=== PATIENT | female | born 1960 | race Caucasian/White ===

== ENCOUNTER 2017-09-22 16:46 | Inpatient (IN) ==
--- NOTE | 2017-09-22 17:16 | Emergency Department Note ---
Disposition Clinical Impression: Elevated d-dimer, Confusion, Ataxia of both arms Dyspnea Qualifiers: Dyspnea type: unspecified Qualified Code(s): R06.00 - Dyspnea, unspecified Chest pain Qualifiers: Chest pain type: unspecified Qualified Code(s): R07.9 - Chest pain, unspecified Altered mental status Qualifiers: Altered mental status type: unspecified Qualified Code(s): R41.82 - Altered mental status, unspecified Disposition: Still a Patient Condition: Good Referrals: Efrem Mcbride MD [Primary Care Provider] - Forms: ED Satisfaction Letter Time of Disposition: 18:29 SOB HPI - General Chief Complaint: ED Shortness of Breath/Dyspnea Stated Complaint: DEBRA, high HR Time Seen by Provider: 09/22/17 16:50 Source: patient, family Mode of arrival: ambulatory Limitations: no limitations Nursing Notes Reviewed: Yes Vital Signs Reviewed: Yes - History of Present Illness Patient is a 57-year-old female with past medical history of COPD, wears 2 L nasal cannula chronically at home. She presents today due to multiple complaints. She states that over the past week, she has had short-term memory loss. Today, several hours prior to arrival, she was looking at her 's cell phone and felt very confused, did not know how to use it. She denies any specific numbness, tingling, weakness. However, she does note that she has been having tremors gradually developing over the past week as well. She also notes that she had chest pain yesterday described as a chest pressure that started while at rest and then worsened with exertion, lasted most of the day and then dissipated before bed without any medications. During that time, she had associated shortness of breath. No return of chest pain today that she continues to have shortness of breath. She says that her oxygen saturation was low at home in the 70s to 80s on her usual 2 L nasal cannula. Should increase her home oxygen to maintain saturation above 88%. Denies any other nausea, vomiting, fevers, diarrhea, abdominal pain, productive cough. - Related Data Home Medications Medication Instructions Recorded Confirmed Albuterol Sulfate [Proair Hfa] 2 puff IH Q4H PRN 11/11/16 11/11/16 Atorvastatin [Lipitor] 10 mg PO DAILY 11/11/16 11/11/16 Baclofen 20 mg PO BID PRN 11/11/16 11/11/16 Clopidogrel [Plavix] 75 mg PO DAILY 11/11/16 11/11/16 Fluticasone/Salmeterol [Advair 1 puff IH BID 11/11/16 11/11/16 250-50 Diskus] Furosemide [Lasix] 10 mg PO DAILY 11/11/16 11/11/16 Levothyroxine [Synthroid] 25 mcg PO DAILY 11/11/16 11/11/16 Loperamide [Imodium] 2 mg PO QID PRN 11/11/16 11/11/16 Multivit-Min/Iron/Folic/Lutein 1 tab PO DAILY 11/11/16 11/11/16 [Centrum Silver Women Tablet] Nitroglycerin [Nitrostat] 0.4 mg SL Q5M PRN 11/11/16 11/11/16 Oxygen 2 l .ROUTE AD 11/11/16 11/11/16 Pregabalin [Lyrica] 100 mg PO QAM 11/11/16 11/11/16 Pregabalin [Lyrica] 200 mg PO HS 11/11/16 11/11/16 Sertraline [Zoloft] 100 mg PO DAILY 11/11/16 11/11/16 Trazodone HCl 100 mg PO DAILY 11/11/16 11/11/16 clonazePAM [Klonopin] 0.5 mg PO QAM 11/11/16 11/11/16 clonazePAM [Klonopin] 1 mg PO HS 11/11/16 11/11/16 Previous Rx's Medication Instructions Recorded Ciprofloxacin HCl [Cipro] 500 mg PO BID #8 tablet 11/15/16 HYDROcodone/Acet 10/325 mg [[place] 1 tab PO Q8H PRN #15 tablet 11/15/16 10-325 mg] Ondansetron ODT [Zofran ODT] 4 mg SL Q6HR #10 tab.rapdis 11/28/16 metroNIDAZOLE [Flagyl] 500 mg PO BID #20 tablet 11/28/16 Allergies Allergy/AdvReac Type Severity Reaction Status Date / Time cefdinir Allergy Hives Verified 11/28/16 14:31 Penicillins Allergy Hives Verified 11/28/16 14:31 All systems ED: reviewed and negative except as stated. Constitutional: Denies: fever Cardiovascular: Reports: chest pain Respiratory: Reports: dyspnea. Denies: cough, wheezes Gastrointestinal: Denies: abdominal pain, nausea, vomiting, diarrhea Genitourinary: Denies: urgency, dysuria, frequency, hematuria Neurological: Reports: other (tremors, short term memory loss). Denies: headache, weakness, numbness, paresthesias Past Medical History - Past Medical History Attestation: Yes The following information was validated with the patient. Source: patient Medical history: Reports: COPD, hypertension, renal disease Surgical history: Reports: cholecystectomy, hysterectomy Psychiatric history: Reports: anxiety, depression - Social History Smoking Status: Current every day smoker Smokeless Tobacco Status: No Alcohol use: Reports: none Drug use: Reports: none Physical Exam - General Limitations: no limitations General appearance: alert - Head Head exam: atraumatic, normocephalic, normal inspection - Eye Eye exam: Present: normal appearance, PERRL, EOMI - ENT ENT exam: normal exam, normal oropharynx, mucous membranes moist - Neck Neck exam: Present: normal inspection, full ROM, trachea midline - Chest Chest inspection: Present: normal inspection, symmetric chest wall rise - Respiratory Respiratory exam: Present: normal lung sounds bilaterally - Cardiovascular Cardiovascular exam: Present: regular rate, normal rhythm, normal heart sounds - Abdominal Exam Abdominal exam: Present: soft, Non-Tender. Absent: tenderness, distention, guarding, rebound, rigidity - Extremities Exam Extremities exam: Present: normal inspection, full ROM. Absent: tenderness, pedal edema - Neurological Exam Neurological exam: Present: alert, oriented X3, CN II-XII intact - Expanded Neurological Exam Patient oriented to: Present: person, place. Absent: time Speech: Present: fluid speech Cranial nerves: EOM function (II, III, IV, ): Normal, facial sensation (V): Normal, facial palsy (VII): Normal, spinal accessory function (XI): Normal, tongue deviation (XII): Normal Cerebellar function: finger to nose: Abnormal Left, Abnormal Right (ataxia of bilateral UE) Motor strength - LUE: 5/5 Motor strength - RUE: 5/5 Motor strength - LLE: 5/5 Motor strength - RLE: 5/5 Sensory exam upper extremity: light touch: Normal Sensory exam lower extremity: light touch: Normal Coma Scale Eye Opening: Spontaneous Coma Scale Motor Response: Obeys Commands Coma Scale Verbal Response: Oriented Coma Scale Total: 15 - Psychiatric Psychiatric exam: Present: normal affect, normal mood - Skin Skin exam: Present: warm, dry, intact, normal color Course Course Narrative: Patient is alert and oriented 2, not oriented to time. She believes that it is 2013. She also has ataxia bilateral upper trapezius. Otherwise, no other focal neuro deficits. Symptoms have been present for at least the past 12 hours. No stroke alert at this time. She has also had gradual confusion and short-term memory loss over the past week. We will obtain basic blood work, chest x-ray to assess for shortness of breath, d-dimer, troponin, CT of the head and assessment. 18:20 troponin negative. EKG shows no acute ST changes. Chest x-ray shows patchy bilateral lower lung airspace disease concerning for pneumonia or pulmonary edema. D-dimer was elevated, we will hold off on any treatment until we get a CTA for further assessment. Head CT negative for any acute intracranial abnormality. Patient will be signed out to Dr. Darnell and Dr. Arechiga for further care and a scope. Recommend that the patient be admitted for further CVA workup after CTA is back. Chest X-Ray 09/22/17 16:52 IMPRESSION: Patchy bilateral lower lung airspace disease. Multifocal pneumonia and pulmonary edema both considered. D/ / Ezio Severino MD / Ezio Severino MD Interpreting Provider: Ezio Severino MD Head CT 09/22/17 17:10 IMPRESSION: No acute intracranial abnormality. D/ / Phillip Ramon MD / Phillip Ramon MD Interpreting Provider: Phillip Ramon MD Vital Signs Temperature 97.5 F L 09/22/17 16:47 Pulse Rate 81 09/22/17 16:47 Respiratory Rate 16 09/22/17 16:47 Blood Pressure 98/68 09/22/17 16:47 O2 Sat by Pulse Oximetry 94 09/22/17 16:47 Temperature 97.5 F L 09/22/17 16:47 Pulse Rate 77 09/22/17 17:54 Respiratory Rate 20 09/22/17 17:54 Blood Pressure 101/56 09/22/17 17:54 O2 Sat by Pulse Oximetry 94 09/22/17 17:54 Oxygen Delivery Oxygen Delivery Nasal Cannula Shortness of Breath/Dyspnea - MDM Narrative Medical decision making narrative: Patient is alert and oriented 2, not oriented to time. She believes that it is 2013. She also has ataxia bilateral upper trapezius. Otherwise, no other focal neuro deficits. Symptoms have been present for at least the past 12 hours. No stroke alert at this time. She has also had gradual confusion and short-term memory loss over the past week. We will obtain basic blood work, chest x-ray to assess for shortness of breath, d-dimer, troponin, CT of the head and assessment. 18:20 troponin negative. EKG shows no acute ST changes. Chest x-ray shows patchy bilateral lower lung airspace disease concerning for pneumonia or pulmonary edema. D-dimer was elevated, we will hold off on any treatment until we get a CTA for further assessment. Head CT negative for any acute intracranial abnormality. Patient will be signed out to Dr. Darnell and Dr. Arechiga for further care and a scope. Recommend that the patient be admitted for further CVA workup after CTA is back. - Medical Records Medical records reviewed: Yes I reviewed the patient's medical records. - Lab Data Lab results reviewed: Yes I reviewed the patient's lab results. Result diagrams: 09/22/17 17:35 09/22/17 17:35 Lab Results 09/22/17 09/22/17 09/22/17 Range/Units 17:35 17:35 17:35 WBC 9.3 (4.3-11.1) K/mcL RBC 4.43 (3.82-4.97) M/mcL Hgb 14.3 (11.5-15.4) g/dL Hct 41.4 (35.3-44.9) % MCV 93.5 (83.0-100.0) fL MCH 32.3 (28.0-33.3) pg MCHC 34.5 (31.6-35.5) g/dL RDW 13.6 (11.5-14.5) % Plt Count 253 (140-400) K/mcL MPV 10.1 (9.4-12.4) fL Immature Gran % 0.3 (0-4) % Seg Neutrophils % 71.1 % Lymphocytes % 20.8 % Monocytes % 6.1 % Eosinophils % 1.3 % Basophils % 0.4 % Neutrophils # 6.6 (1.6-8.9) K/mcL Lymphocytes # 1.9 (0.6-4.6) K/mcL Monocytes # 0.6 (0.0-1.3) K/mcL Eosinophils # 0.1 (0.0-0.6) K/mcL Basophils # 0.0 (0.0-0.2) K/mcL D-Dimer (0-500) ng/mLFEU Sodium 134 L (136-145) mEq/L Potassium 3.4 L (3.5-5.1) mEq/L Chloride 103 (98-107) mEq/L Carbon Dioxide 25 (23-29) mEq/L BUN 7 (6-20) mg/dL Creatinine 0.92 (0.60-1.20) mg/dL Est GFR ( Amer) > 60 (> 60) Est GFR (Non-Af Amer) > 60 (> 60) BUN/Creatinine Ratio 8 (6-26) Glucose 111 H (70-105) mg/dL Calculated Osmolality 277 L (280-300) Lactic Acid 1.9 (0.5-2.2) mmol/L Calcium 9.1 (8.6-10.3) mg/dL Troponin I < 0.03 (< 0.04) ng/mL B-Natriuretic Peptide (Less than 100) pg/mL 09/22/17 09/22/17 Range/Units 17:35 17:35 WBC (4.3-11.1) K/mcL RBC (3.82-4.97) M/mcL Hgb (11.5-15.4) g/dL Hct (35.3-44.9) % MCV (83.0-100.0) fL MCH (28.0-33.3) pg MCHC (31.6-35.5) g/dL RDW (11.5-14.5) % Plt Count (140-400) K/mcL MPV (9.4-12.4) fL Immature Gran % (0-4) % Seg Neutrophils % % Lymphocytes % % Monocytes % % Eosinophils % % Basophils % % Neutrophils # (1.6-8.9) K/mcL Lymphocytes # (0.6-4.6) K/mcL Monocytes # (0.0-1.3) K/mcL Eosinophils # (0.0-0.6) K/mcL Basophils # (0.0-0.2) K/mcL D-Dimer 698 H (0-500) ng/mLFEU Sodium (136-145) mEq/L Potassium (3.5-5.1) mEq/L Chloride (98-107) mEq/L Carbon Dioxide (23-29) mEq/L BUN (6-20) mg/dL Creatinine (0.60-1.20) mg/dL Est GFR ( Amer) (> 60) Est GFR (Non-Af Amer) (> 60) BUN/Creatinine Ratio (6-26) Glucose (70-105) mg/dL Calculated Osmolality (280-300) Lactic Acid (0.5-2.2) mmol/L Calcium (8.6-10.3) mg/dL Troponin I (< 0.04) ng/mL B-Natriuretic Peptide 183 H (Less than 100) pg/mL - Radiology Data Radiology results reviewed: Yes I reviewed the patient's radiology results. Chest X-Ray 09/22/17 16:52 IMPRESSION: Patchy bilateral lower lung airspace disease. Multifocal pneumonia and pulmonary edema both considered. D/ / Ezio Severino MD / Ezio Severino MD Interpreting Provider: Ezio Severino MD Head CT 09/22/17 17:10 IMPRESSION: No acute intracranial abnormality. D/ / Phillip Ramon MD / Phillip Ramon MD Interpreting Provider: Phillip Ramon MD - EKG Data EKG attestation: Yes I reviewed and interpreted this EKG. EKG results narrative: 09/22/2017 at 17:01. Normal sinus rhythm. Rate 83. CA 176. QRS 90. QTc 328. Normal axis. No acute ST elevation or depression. S.Renae. - S.Presley.ANateR. Situation: Demographics, MOA Background: Presenting Complaint, Relevant PMH, Meds, & Allergies Assessment: Vital Signs, Course and respsone to treatment, Exam Concerns, Patient/Family Expectation, Pertinant Lab Results, Outstanding Labs Recommendation: Barrier(s) to disposition, Recommendation based on pending studies, treatments, or consults S.B.A.RNate Report Given to: Dr. Darnell, Dr. Arechiga S.B.ANateRNate Repor Time: 19:00
[2017-09-22 17:46] LABS: Basophils % 0.4 %; Eosinophils # 0.1 K/mcL (0.0-0.6); Eosinophils % 1.3 %; Hematocrit 41.4 % (35.3-44.9); Hemoglobin 14.3 g/dL (11.5-15.4); Immature Granulocytes % 0.3 % (0-4); Lymphocytes # 1.9 K/mcL (0.6-4.6); Lymphocytes % 20.8 %; Mean Corpuscular HGB Conc 34.5 g/dL (31.6-35.5); Mean Corpuscular Hemoglobin 32.3 pg (28.0-33.3); Mean Corpuscular Volume 93.5 fL (83.0-100.0); Mean Platelet Volume 10.1 fL (9.4-12.4); Monocytes # 0.6 K/mcL (0.0-1.3); Monocytes % 6.1 %; Neutrophils # 6.6 K/mcL (1.6-8.9); Platelet Count 253 K/mcL (140-400); Red Blood Count 4.43 M/mcL (3.82-4.97); Red Cell Distribution Width 13.6 % (11.5-14.5); Segmented Neutrophils % 71.1 %
[2017-09-22 18:09] LABS: Troponin I < 0.03 ng/mL (< 0.04)
[2017-09-22 18:10] LABS: BUN/Creatinine Ratio 8 (6-26); Blood Urea Nitrogen 7 mg/dL (6-20); Calcium 9.1 mg/dL (8.6-10.3); Carbon Dioxide 25 mEq/L (23-29); Chloride 103 mEq/L (98-107); Glucose 111 mg/dL (70-105); Osmolality,Calculated 277 (280-300); Potassium 3.4 mEq/L (3.5-5.1); Sodium 134 mEq/L (136-145); eGFR For African Americans > 60 (> 60); eGFR For Non-African Americans > 60 (> 60)
--- NOTE | 2017-09-22 18:47 | Emergency Department Note ---
Disposition Clinical Impression: Elevated d-dimer, Confusion, Ataxia of both arms Dyspnea Qualifiers: Dyspnea type: unspecified Qualified Code(s): R06.00 - Dyspnea, unspecified Chest pain Qualifiers: Chest pain type: unspecified Qualified Code(s): R07.9 - Chest pain, unspecified Altered mental status Qualifiers: Altered mental status type: unspecified Qualified Code(s): R41.82 - Altered mental status, unspecified Disposition: Still a Patient Condition: Good Referrals: Efrem Mcbride MD [Primary Care Provider] - Forms: ED Satisfaction Letter General Adult HPI - General Chief complaint: ED Shortness of Breath/Dyspnea Stated complaint: DEBRA, high HR Time Seen by Provider: 09/22/17 16:50 Source: patient, family Mode of arrival: ambulatory Limitations: no limitations - History of Present Illness Pain Scale: 0 - Related Data Home Medications Medication Instructions Recorded Confirmed Albuterol Sulfate [Proair Hfa] 2 puff IH Q4H PRN 11/11/16 11/11/16 Atorvastatin [Lipitor] 10 mg PO DAILY 11/11/16 11/11/16 Baclofen 20 mg PO BID PRN 11/11/16 11/11/16 Clopidogrel [Plavix] 75 mg PO DAILY 11/11/16 11/11/16 Fluticasone/Salmeterol [Advair 1 puff IH BID 11/11/16 11/11/16 250-50 Diskus] Furosemide [Lasix] 10 mg PO DAILY 11/11/16 11/11/16 Levothyroxine [Synthroid] 25 mcg PO DAILY 11/11/16 11/11/16 Loperamide [Imodium] 2 mg PO QID PRN 11/11/16 11/11/16 Multivit-Min/Iron/Folic/Lutein 1 tab PO DAILY 11/11/16 11/11/16 [Centrum Silver Women Tablet] Nitroglycerin [Nitrostat] 0.4 mg SL Q5M PRN 11/11/16 11/11/16 Oxygen 2 l .ROUTE AD 11/11/16 11/11/16 Pregabalin [Lyrica] 100 mg PO QAM 11/11/16 11/11/16 Pregabalin [Lyrica] 200 mg PO HS 11/11/16 11/11/16 Sertraline [Zoloft] 100 mg PO DAILY 11/11/16 11/11/16 Trazodone HCl 100 mg PO DAILY 11/11/16 11/11/16 clonazePAM [Klonopin] 0.5 mg PO QAM 11/11/16 11/11/16 clonazePAM [Klonopin] 1 mg PO HS 11/11/16 11/11/16 Previous Rx's Medication Instructions Recorded Ciprofloxacin HCl [Cipro] 500 mg PO BID #8 tablet 11/15/16 HYDROcodone/Acet 10/325 mg [[place] 1 tab PO Q8H PRN #15 tablet 11/15/16 10-325 mg] Ondansetron ODT [Zofran ODT] 4 mg SL Q6HR #10 tab.rapdis 11/28/16 metroNIDAZOLE [Flagyl] 500 mg PO BID #20 tablet 11/28/16 Allergies Allergy/AdvReac Type Severity Reaction Status Date / Time cefdinir Allergy Hives Verified 11/28/16 14:31 Penicillins Allergy Hives Verified 11/28/16 14:31 Constitutional: Denies: fever Cardiovascular: Reports: chest pain Respiratory: Reports: dyspnea. Denies: cough, wheezes Gastrointestinal: Denies: abdominal pain, nausea, vomiting, diarrhea Genitourinary: Denies: urgency, dysuria, frequency, hematuria Neurological: Reports: other (tremors, short term memory loss). Denies: headache, weakness, numbness, paresthesias Past Medical History - Past Medical History Medical history: Reports: COPD, hypertension, renal disease Surgical history: Reports: cholecystectomy, hysterectomy Psychiatric history: Reports: anxiety, depression - Social History Smoking Status: Current every day smoker Smokeless Tobacco Status: No Alcohol use: Reports: none Drug use: Reports: none Physical Exam - General Limitations: no limitations General appearance: alert Course Vital Signs Temperature 97.5 F L 09/22/17 16:47 Pulse Rate 81 09/22/17 16:47 Respiratory Rate 16 09/22/17 16:47 Blood Pressure 98/68 09/22/17 16:47 O2 Sat by Pulse Oximetry 94 09/22/17 16:47 Temperature 97.5 F L 09/22/17 16:47 Pulse Rate 77 09/22/17 17:54 Respiratory Rate 20 09/22/17 17:54 Blood Pressure 101/56 09/22/17 17:54 O2 Sat by Pulse Oximetry 94 09/22/17 17:54 Oxygen Delivery Oxygen Delivery Nasal Cannula Medical Decision Making - Lab Data Result diagrams: 09/22/17 17:35 09/22/17 17:35 Lab Results 09/22/17 09/22/17 09/22/17 Range/Units 17:35 17:35 17:35 WBC 9.3 (4.3-11.1) K/mcL RBC 4.43 (3.82-4.97) M/mcL Hgb 14.3 (11.5-15.4) g/dL Hct 41.4 (35.3-44.9) % MCV 93.5 (83.0-100.0) fL MCH 32.3 (28.0-33.3) pg MCHC 34.5 (31.6-35.5) g/dL RDW 13.6 (11.5-14.5) % Plt Count 253 (140-400) K/mcL MPV 10.1 (9.4-12.4) fL Immature Gran % 0.3 (0-4) % Seg Neutrophils % 71.1 % Lymphocytes % 20.8 % Monocytes % 6.1 % Eosinophils % 1.3 % Basophils % 0.4 % Neutrophils # 6.6 (1.6-8.9) K/mcL Lymphocytes # 1.9 (0.6-4.6) K/mcL Monocytes # 0.6 (0.0-1.3) K/mcL Eosinophils # 0.1 (0.0-0.6) K/mcL Basophils # 0.0 (0.0-0.2) K/mcL D-Dimer (0-500) ng/mLFEU Sodium 134 L (136-145) mEq/L Potassium 3.4 L (3.5-5.1) mEq/L Chloride 103 (98-107) mEq/L Carbon Dioxide 25 (23-29) mEq/L BUN 7 (6-20) mg/dL Creatinine 0.92 (0.60-1.20) mg/dL Est GFR ( Amer) > 60 (> 60) Est GFR (Non-Af Amer) > 60 (> 60) BUN/Creatinine Ratio 8 (6-26) Glucose 111 H (70-105) mg/dL Calculated Osmolality 277 L (280-300) Lactic Acid 1.9 (0.5-2.2) mmol/L Calcium 9.1 (8.6-10.3) mg/dL Troponin I < 0.03 (< 0.04) ng/mL B-Natriuretic Peptide (Less than 100) pg/mL 09/22/17 09/22/17 Range/Units 17:35 17:35 WBC (4.3-11.1) K/mcL RBC (3.82-4.97) M/mcL Hgb (11.5-15.4) g/dL Hct (35.3-44.9) % MCV (83.0-100.0) fL MCH (28.0-33.3) pg MCHC (31.6-35.5) g/dL RDW (11.5-14.5) % Plt Count (140-400) K/mcL MPV (9.4-12.4) fL Immature Gran % (0-4) % Seg Neutrophils % % Lymphocytes % % Monocytes % % Eosinophils % % Basophils % % Neutrophils # (1.6-8.9) K/mcL Lymphocytes # (0.6-4.6) K/mcL Monocytes # (0.0-1.3) K/mcL Eosinophils # (0.0-0.6) K/mcL Basophils # (0.0-0.2) K/mcL D-Dimer 698 H (0-500) ng/mLFEU Sodium (136-145) mEq/L Potassium (3.5-5.1) mEq/L Chloride (98-107) mEq/L Carbon Dioxide (23-29) mEq/L BUN (6-20) mg/dL Creatinine (0.60-1.20) mg/dL Est GFR ( Amer) (> 60) Est GFR (Non-Af Amer) (> 60) BUN/Creatinine Ratio (6-26) Glucose (70-105) mg/dL Calculated Osmolality (280-300) Lactic Acid (0.5-2.2) mmol/L Calcium (8.6-10.3) mg/dL Troponin I (< 0.04) ng/mL B-Natriuretic Peptide 183 H (Less than 100) pg/mL Attestation Statement - Attestation Attestation: I examined this patient and my medical decision-making was reviewed with the Resident Physician. I agree with the documented findings, disposition and treatment plan as described except to the extent set forth below. 57 year old female presents to the ED with complaints of headaache and HTN and DEBRA//HR. She has some movement disorder with tremors. Patient will need a CTA to rule out PE due to elevated D-dimer. Patinet HCT is negative. WE will sign out patient to the night team pending CTA chest. IF negative she can be discharged home with [facility]y for her headache and tremors, although if postiive for PE then she will need admission tot hospital.
--- NOTE | 2017-09-22 19:14 | Emergency Department Note ---
Disposition Clinical Impression: Elevated d-dimer, Confusion, Ataxia of both arms Dyspnea Qualifiers: Dyspnea type: unspecified Qualified Code(s): R06.00 - Dyspnea, unspecified Chest pain Qualifiers: Chest pain type: unspecified Qualified Code(s): R07.9 - Chest pain, unspecified Altered mental status Qualifiers: Altered mental status type: unspecified Qualified Code(s): R41.82 - Altered mental status, unspecified Disposition: Admitted As Inpatient Condition: Good Time of Disposition: 21:52 General Adult HPI - General Chief complaint: ED Shortness of Breath/Dyspnea Stated complaint: DEBRA, high HR Time Seen by Provider: 09/22/17 16:50 Source: patient, family Mode of arrival: ambulatory Limitations: no limitations Nursing Notes Reviewed: Yes Vital Signs Reviewed: Yes - History of Present Illness HPI Narrative: Patient signed out to me from daytime physicians Dr. Moore and Dr. Bright for CTA chest results and final disposition. Please see their note for further details. Pain Scale: 0 - Related Data Home Medications Medication Instructions Recorded Confirmed Albuterol Sulfate [Proair Hfa] 2 puff IH Q4H PRN 11/11/16 09/22/17 Atorvastatin [Lipitor] 10 mg PO DAILY 11/11/16 09/22/17 Baclofen 20 mg PO BID PRN 11/11/16 09/22/17 Clopidogrel [Plavix] 75 mg PO DAILY 11/11/16 09/22/17 Fluticasone/Salmeterol [Advair 1 puff IH BID 11/11/16 09/22/17 250-50 Diskus] Furosemide [Lasix] 10 mg PO DAILY 11/11/16 09/22/17 Loperamide [Imodium] 2 mg PO QID PRN 11/11/16 09/22/17 Multivit-Min/Iron/Folic/Lutein 1 tab PO DAILY 11/11/16 09/22/17 [Centrum Silver Women Tablet] Nitroglycerin [Nitrostat] 0.4 mg SL Q5M PRN 11/11/16 09/22/17 Oxygen 2 l .ROUTE AD 11/11/16 09/22/17 Pregabalin [Lyrica] 100 mg PO QAM 11/11/16 09/22/17 Pregabalin [Lyrica] 200 mg PO HS 11/11/16 09/22/17 Sertraline [Zoloft] 100 mg PO DAILY 11/11/16 09/22/17 Trazodone HCl 100 mg PO DAILY 11/11/16 09/22/17 Previous Rx's Medication Instructions Recorded HYDROcodone/Acet 10/325 mg [[place] 1 tab PO Q8H PRN #15 tablet 11/15/16 10-325 mg] Ondansetron ODT [Zofran ODT] 4 mg SL Q6HR #10 tab.rapdis 11/28/16 Allergies Allergy/AdvReac Type Severity Reaction Status Date / Time cefdinir Allergy Hives Verified 11/28/16 14:31 Penicillins Allergy Hives Verified 11/28/16 14:31 Constitutional: Denies: fever Cardiovascular: Reports: chest pain Respiratory: Reports: dyspnea. Denies: cough, wheezes Gastrointestinal: Denies: abdominal pain, nausea, vomiting, diarrhea Genitourinary: Denies: urgency, dysuria, frequency, hematuria Neurological: Reports: other (tremors, short term memory loss). Denies: headache, weakness, numbness, paresthesias Past Medical History - Past Medical History Medical history: Reports: COPD, hypertension, renal disease Surgical history: Reports: cholecystectomy, hysterectomy Psychiatric history: Reports: anxiety, depression - Social History Smoking Status: Current every day smoker Smokeless Tobacco Status: No Alcohol use: Reports: none Drug use: Reports: none Physical Exam - General Limitations: no limitations General appearance: alert Course Course Narrative: Patient signed out to me from daytime physicians Dr. Moore and Dr. Bright for CTA chest results and final disposition. Please see their note for further details. Alesha is a 57-year-old female history of COPD on to liter home oxygen supplementation who presented with multiple complaints. Symptoms have been ongoing for roughly a week where she is reporting some confusion, memory loss and shortness of breath. She also notes that she been gradually having tremors over the past week. She also reports some chest pressure with some associated shortness of breath. At one point it was reported that her oxygen saturation was in the 70s to 80s. Initially she was reported be confused. Currently she is awake alert and oriented person place and time. On examination she does have some ataxia with finger to nose the upper extremities. Review for labs BNP elevated 183. Troponin lesson 0.03. Some electrolyte abnormalities. It is CT of the head was negative. CT of the chest show findings confirming CHF exacerbation but no pulmonary embolism. At this time given her initial presentation she will require admission for further workup for possible CVA as well as her dyspnea and CHF. A dose of Lasix was given here. Patient is in agreement with this plan for admission and further management. Impression is ataxia, confusion, dyspnea, CHF - Consultations Consultation #1: Spoke with on-call hospitalist merna Dorado to admit for ataxia, CHF exacerbation, CVA workup d/t confusion. No further orders at this time Time: 21:52 Vital Signs Temperature 97.5 F L 09/22/17 16:47 Pulse Rate 81 09/22/17 16:47 Respiratory Rate 16 09/22/17 16:47 Blood Pressure 98/68 09/22/17 16:47 O2 Sat by Pulse Oximetry 94 09/22/17 16:47 Temperature 98.1 F 09/22/17 22:48 Pulse Rate 66 09/22/17 21:00 Respiratory Rate 16 09/22/17 22:48 Blood Pressure 98/62 09/22/17 22:48 O2 Sat by Pulse Oximetry 91 09/22/17 23:36 Oxygen Delivery Oxygen Delivery Nasal Cannula Medical Decision Making - MDM Narrative Medical decision making narrative: Patient was discussed with my attending physician who agrees with ED management and final disposition. They independently evaluated the patient. Please refer to their attestation to this encounter for additional information. This note was generated by [employer] voice recognition software and as a result grammatical or spelling errors may occur using this program. - Medical Records Medical records reviewed: Yes I reviewed the patient's medical records. - Lab Data Lab results reviewed: Yes I reviewed the patient's lab results. Result diagrams: 09/23/17 00:33 09/23/17 00:33 Lab Results 09/22/17 09/22/17 09/22/17 Range/Units 17:35 17:35 17:35 WBC 9.3 (4.3-11.1) K/mcL RBC 4.43 (3.82-4.97) M/mcL Hgb 14.3 (11.5-15.4) g/dL Hct 41.4 (35.3-44.9) % MCV 93.5 (83.0-100.0) fL MCH 32.3 (28.0-33.3) pg MCHC 34.5 (31.6-35.5) g/dL RDW 13.6 (11.5-14.5) % Plt Count 253 (140-400) K/mcL MPV 10.1 (9.4-12.4) fL Immature Gran % 0.3 (0-4) % Seg Neutrophils % 71.1 % Lymphocytes % 20.8 % Monocytes % 6.1 % Eosinophils % 1.3 % Basophils % 0.4 % Neutrophils # 6.6 (1.6-8.9) K/mcL Lymphocytes # 1.9 (0.6-4.6) K/mcL Monocytes # 0.6 (0.0-1.3) K/mcL Eosinophils # 0.1 (0.0-0.6) K/mcL Basophils # 0.0 (0.0-0.2) K/mcL D-Dimer (0-500) ng/mLFEU VBG pH (7.32-7.42) pH Units VBG pCO2 (41-51) mmHg VBG pO2 (25-50) mmHg VBG HCO3 (21-27) mEq/L Sodium 134 L (136-145) mEq/L Potassium 3.4 L (3.5-5.1) mEq/L Chloride 103 (98-107) mEq/L Carbon Dioxide 25 (23-29) mEq/L BUN 7 (6-20) mg/dL Creatinine 0.92 (0.60-1.20) mg/dL Est GFR ( Amer) > 60 (> 60) Est GFR (Non-Af Amer) > 60 (> 60) BUN/Creatinine Ratio 8 (6-26) Glucose 111 H (70-105) mg/dL Calculated Osmolality 277 L (280-300) Lactic Acid 1.9 (0.5-2.2) mmol/L Calcium 9.1 (8.6-10.3) mg/dL Troponin I < 0.03 (< 0.04) ng/mL B-Natriuretic Peptide (Less than 100) pg/mL 09/22/17 09/22/17 09/22/17 Range/Units 17:35 17:35 19:11 WBC (4.3-11.1) K/mcL RBC (3.82-4.97) M/mcL Hgb (11.5-15.4) g/dL Hct (35.3-44.9) % MCV (83.0-100.0) fL MCH (28.0-33.3) pg MCHC (31.6-35.5) g/dL RDW (11.5-14.5) % Plt Count (140-400) K/mcL MPV (9.4-12.4) fL Immature Gran % (0-4) % Seg Neutrophils % % Lymphocytes % % Monocytes % % Eosinophils % % Basophils % % Neutrophils # (1.6-8.9) K/mcL Lymphocytes # (0.6-4.6) K/mcL Monocytes # (0.0-1.3) K/mcL Eosinophils # (0.0-0.6) K/mcL Basophils # (0.0-0.2) K/mcL D-Dimer 698 H (0-500) ng/mLFEU VBG pH (7.32-7.42) pH Units VBG pCO2 (41-51) mmHg VBG pO2 (25-50) mmHg VBG HCO3 (21-27) mEq/L Sodium (136-145) mEq/L Potassium (3.5-5.1) mEq/L Chloride (98-107) mEq/L Carbon Dioxide (23-29) mEq/L BUN (6-20) mg/dL Creatinine (0.60-1.20) mg/dL Est GFR ( Amer) (> 60) Est GFR (Non-Af Amer) (> 60) BUN/Creatinine Ratio (6-26) Glucose (70-105) mg/dL Calculated Osmolality (280-300) Lactic Acid 2.0 (0.5-2.2) mmol/L Calcium (8.6-10.3) mg/dL Troponin I (< 0.04) ng/mL B-Natriuretic Peptide 183 H (Less than 100) pg/mL 09/22/17 Range/Units 19:20 WBC (4.3-11.1) K/mcL RBC (3.82-4.97) M/mcL Hgb (11.5-15.4) g/dL Hct (35.3-44.9) % MCV (83.0-100.0) fL MCH (28.0-33.3) pg MCHC (31.6-35.5) g/dL RDW (11.5-14.5) % Plt Count (140-400) K/mcL MPV (9.4-12.4) fL Immature Gran % (0-4) % Seg Neutrophils % % Lymphocytes % % Monocytes % % Eosinophils % % Basophils % % Neutrophils # (1.6-8.9) K/mcL Lymphocytes # (0.6-4.6) K/mcL Monocytes # (0.0-1.3) K/mcL Eosinophils # (0.0-0.6) K/mcL Basophils # (0.0-0.2) K/mcL D-Dimer (0-500) ng/mLFEU VBG pH 7.34 (7.32-7.42) pH Units VBG pCO2 48 (41-51) mmHg VBG pO2 73 H (25-50) mmHg VBG HCO3 26 (21-27) mEq/L Sodium (136-145) mEq/L Potassium (3.5-5.1) mEq/L Chloride (98-107) mEq/L Carbon Dioxide (23-29) mEq/L BUN (6-20) mg/dL Creatinine (0.60-1.20) mg/dL Est GFR ( Amer) (> 60) Est GFR (Non-Af Amer) (> 60) BUN/Creatinine Ratio (6-26) Glucose (70-105) mg/dL Calculated Osmolality (280-300) Lactic Acid (0.5-2.2) mmol/L Calcium (8.6-10.3) mg/dL Troponin I (< 0.04) ng/mL B-Natriuretic Peptide (Less than 100) pg/mL - Radiology Data Radiology results reviewed: Yes I reviewed the patient's radiology results. Chest X-Ray 09/22/17 16:52 IMPRESSION: Patchy bilateral lower lung airspace disease. Multifocal pneumonia and pulmonary edema both considered. D/ / Ezio Severino MD / Ezio Severino MD Interpreting Provider: Ezio Severino MD Head CT 09/22/17 17:10 IMPRESSION: No acute intracranial abnormality. D/ / Phillip Ramon MD / Phillip Ramon MD Interpreting Provider: Phillip Ramon MD Chest CTA 09/22/17 18:18 IMPRESSION: No evidence of pulmonary embolism. Mild to moderate diffuse interstitial lung markings particularly in both lung bases. This along with mild cardiomegaly and some pulmonary vascular congestion suggest pulmonary edema and probable acute congestive heart failure. D/ / Leonardo Dodson MD / Leonardo Dodson MD Interpreting Provider: Leonardo Dodson MD
[2017-09-22 19:23] LABS: VBG HCO3 26 mEq/L (21-27); VBG PCO2 48 mmHg (41-51); VBG PH 7.34 pH Units (7.32-7.42); VBG PO2 73 mmHg (25-50)
[2017-09-22] MEDS ORDERED: Furosemide 40 MG/4 ML VIAL IVP ONE (20:01)
--- NOTE | 2017-09-22 20:05 | Emergency Department Note ---
Disposition Clinical Impression: Elevated d-dimer, Confusion, Ataxia of both arms Dyspnea Qualifiers: Dyspnea type: unspecified Qualified Code(s): R06.00 - Dyspnea, unspecified Chest pain Qualifiers: Chest pain type: unspecified Qualified Code(s): R07.9 - Chest pain, unspecified Altered mental status Qualifiers: Altered mental status type: unspecified Qualified Code(s): R41.82 - Altered mental status, unspecified Disposition: Still a Patient Condition: Good Referrals: Efrem Mcbride MD [Primary Care Provider] - Forms: ED Satisfaction Letter General Adult HPI - General Chief complaint: ED Shortness of Breath/Dyspnea Stated complaint: DEBRA, high HR Time Seen by Provider: 09/22/17 16:50 Source: patient, family Mode of arrival: ambulatory Limitations: no limitations Nursing Notes Reviewed: Yes Vital Signs Reviewed: Yes - History of Present Illness Pain Scale: 0 - Related Data Home Medications Medication Instructions Recorded Confirmed Albuterol Sulfate [Proair Hfa] 2 puff IH Q4H PRN 11/11/16 11/11/16 Atorvastatin [Lipitor] 10 mg PO DAILY 11/11/16 11/11/16 Baclofen 20 mg PO BID PRN 11/11/16 11/11/16 Clopidogrel [Plavix] 75 mg PO DAILY 11/11/16 11/11/16 Fluticasone/Salmeterol [Advair 1 puff IH BID 11/11/16 11/11/16 250-50 Diskus] Furosemide [Lasix] 10 mg PO DAILY 11/11/16 11/11/16 Levothyroxine [Synthroid] 25 mcg PO DAILY 11/11/16 11/11/16 Loperamide [Imodium] 2 mg PO QID PRN 11/11/16 11/11/16 Multivit-Min/Iron/Folic/Lutein 1 tab PO DAILY 11/11/16 11/11/16 [Centrum Silver Women Tablet] Nitroglycerin [Nitrostat] 0.4 mg SL Q5M PRN 11/11/16 11/11/16 Oxygen 2 l .ROUTE AD 11/11/16 11/11/16 Pregabalin [Lyrica] 100 mg PO QAM 11/11/16 11/11/16 Pregabalin [Lyrica] 200 mg PO HS 11/11/16 11/11/16 Sertraline [Zoloft] 100 mg PO DAILY 11/11/16 11/11/16 Trazodone HCl 100 mg PO DAILY 11/11/16 11/11/16 clonazePAM [Klonopin] 0.5 mg PO QAM 11/11/16 11/11/16 clonazePAM [Klonopin] 1 mg PO HS 11/11/16 11/11/16 Previous Rx's Medication Instructions Recorded Ciprofloxacin HCl [Cipro] 500 mg PO BID #8 tablet 11/15/16 HYDROcodone/Acet 10/325 mg [[place] 1 tab PO Q8H PRN #15 tablet 11/15/16 10-325 mg] Ondansetron ODT [Zofran ODT] 4 mg SL Q6HR #10 tab.rapdis 11/28/16 metroNIDAZOLE [Flagyl] 500 mg PO BID #20 tablet 11/28/16 Allergies Allergy/AdvReac Type Severity Reaction Status Date / Time cefdinir Allergy Hives Verified 11/28/16 14:31 Penicillins Allergy Hives Verified 11/28/16 14:31 Constitutional: Denies: fever Cardiovascular: Reports: chest pain Respiratory: Reports: dyspnea. Denies: cough, wheezes Gastrointestinal: Denies: abdominal pain, nausea, vomiting, diarrhea Genitourinary: Denies: urgency, dysuria, frequency, hematuria Neurological: Reports: other (tremors, short term memory loss). Denies: headache, weakness, numbness, paresthesias Past Medical History - Past Medical History Medical history: Reports: COPD, hypertension, renal disease Surgical history: Reports: cholecystectomy, hysterectomy Psychiatric history: Reports: anxiety, depression - Social History Smoking Status: Current every day smoker Smokeless Tobacco Status: No Alcohol use: Reports: none Drug use: Reports: none Physical Exam - General Limitations: no limitations General appearance: alert Course Vital Signs Temperature 97.5 F L 09/22/17 16:47 Pulse Rate 81 09/22/17 16:47 Respiratory Rate 16 09/22/17 16:47 Blood Pressure 98/68 09/22/17 16:47 O2 Sat by Pulse Oximetry 94 09/22/17 16:47 Temperature 97.5 F L 09/22/17 16:47 Pulse Rate 66 09/22/17 21:00 Respiratory Rate 14 09/22/17 19:39 Blood Pressure 97/71 09/22/17 21:00 O2 Sat by Pulse Oximetry 97 09/22/17 21:00 Oxygen Delivery Oxygen Delivery Nasal Cannula Medical Decision Making - Lab Data Result diagrams: 09/22/17 17:35 09/22/17 17:35 Lab Results 09/22/17 09/22/17 09/22/17 Range/Units 17:35 17:35 17:35 WBC 9.3 (4.3-11.1) K/mcL RBC 4.43 (3.82-4.97) M/mcL Hgb 14.3 (11.5-15.4) g/dL Hct 41.4 (35.3-44.9) % MCV 93.5 (83.0-100.0) fL MCH 32.3 (28.0-33.3) pg MCHC 34.5 (31.6-35.5) g/dL RDW 13.6 (11.5-14.5) % Plt Count 253 (140-400) K/mcL MPV 10.1 (9.4-12.4) fL Immature Gran % 0.3 (0-4) % Seg Neutrophils % 71.1 % Lymphocytes % 20.8 % Monocytes % 6.1 % Eosinophils % 1.3 % Basophils % 0.4 % Neutrophils # 6.6 (1.6-8.9) K/mcL Lymphocytes # 1.9 (0.6-4.6) K/mcL Monocytes # 0.6 (0.0-1.3) K/mcL Eosinophils # 0.1 (0.0-0.6) K/mcL Basophils # 0.0 (0.0-0.2) K/mcL D-Dimer (0-500) ng/mLFEU VBG pH (7.32-7.42) pH Units VBG pCO2 (41-51) mmHg VBG pO2 (25-50) mmHg VBG HCO3 (21-27) mEq/L Sodium 134 L (136-145) mEq/L Potassium 3.4 L (3.5-5.1) mEq/L Chloride 103 (98-107) mEq/L Carbon Dioxide 25 (23-29) mEq/L BUN 7 (6-20) mg/dL Creatinine 0.92 (0.60-1.20) mg/dL Est GFR ( Amer) > 60 (> 60) Est GFR (Non-Af Amer) > 60 (> 60) BUN/Creatinine Ratio 8 (6-26) Glucose 111 H (70-105) mg/dL Calculated Osmolality 277 L (280-300) Lactic Acid 1.9 (0.5-2.2) mmol/L Calcium 9.1 (8.6-10.3) mg/dL Troponin I < 0.03 (< 0.04) ng/mL B-Natriuretic Peptide (Less than 100) pg/mL 09/22/17 09/22/17 09/22/17 Range/Units 17:35 17:35 19:11 WBC (4.3-11.1) K/mcL RBC (3.82-4.97) M/mcL Hgb (11.5-15.4) g/dL Hct (35.3-44.9) % MCV (83.0-100.0) fL MCH (28.0-33.3) pg MCHC (31.6-35.5) g/dL RDW (11.5-14.5) % Plt Count (140-400) K/mcL MPV (9.4-12.4) fL Immature Gran % (0-4) % Seg Neutrophils % % Lymphocytes % % Monocytes % % Eosinophils % % Basophils % % Neutrophils # (1.6-8.9) K/mcL Lymphocytes # (0.6-4.6) K/mcL Monocytes # (0.0-1.3) K/mcL Eosinophils # (0.0-0.6) K/mcL Basophils # (0.0-0.2) K/mcL D-Dimer 698 H (0-500) ng/mLFEU VBG pH (7.32-7.42) pH Units VBG pCO2 (41-51) mmHg VBG pO2 (25-50) mmHg VBG HCO3 (21-27) mEq/L Sodium (136-145) mEq/L Potassium (3.5-5.1) mEq/L Chloride (98-107) mEq/L Carbon Dioxide (23-29) mEq/L BUN (6-20) mg/dL Creatinine (0.60-1.20) mg/dL Est GFR ( Amer) (> 60) Est GFR (Non-Af Amer) (> 60) BUN/Creatinine Ratio (6-26) Glucose (70-105) mg/dL Calculated Osmolality (280-300) Lactic Acid 2.0 (0.5-2.2) mmol/L Calcium (8.6-10.3) mg/dL Troponin I (< 0.04) ng/mL B-Natriuretic Peptide 183 H (Less than 100) pg/mL 09/22/17 Range/Units 19:20 WBC (4.3-11.1) K/mcL RBC (3.82-4.97) M/mcL Hgb (11.5-15.4) g/dL Hct (35.3-44.9) % MCV (83.0-100.0) fL MCH (28.0-33.3) pg MCHC (31.6-35.5) g/dL RDW (11.5-14.5) % Plt Count (140-400) K/mcL MPV (9.4-12.4) fL Immature Gran % (0-4) % Seg Neutrophils % % Lymphocytes % % Monocytes % % Eosinophils % % Basophils % % Neutrophils # (1.6-8.9) K/mcL Lymphocytes # (0.6-4.6) K/mcL Monocytes # (0.0-1.3) K/mcL Eosinophils # (0.0-0.6) K/mcL Basophils # (0.0-0.2) K/mcL D-Dimer (0-500) ng/mLFEU VBG pH 7.34 (7.32-7.42) pH Units VBG pCO2 48 (41-51) mmHg VBG pO2 73 H (25-50) mmHg VBG HCO3 26 (21-27) mEq/L Sodium (136-145) mEq/L Potassium (3.5-5.1) mEq/L Chloride (98-107) mEq/L Carbon Dioxide (23-29) mEq/L BUN (6-20) mg/dL Creatinine (0.60-1.20) mg/dL Est GFR ( Amer) (> 60) Est GFR (Non-Af Amer) (> 60) BUN/Creatinine Ratio (6-26) Glucose (70-105) mg/dL Calculated Osmolality (280-300) Lactic Acid (0.5-2.2) mmol/L Calcium (8.6-10.3) mg/dL Troponin I (< 0.04) ng/mL B-Natriuretic Peptide (Less than 100) pg/mL Attestation Statement - Attestation Attestation: I, Jorge A Arechiga MD, personally evaluated this patient and discussed their management with the resident physician. I reviewed the resident's note and agree with the documented findings, medical decision making, and plan of care. This patient was signed out at shift change from Dr. Moore and Dr. Bree Bright. Please refer to their notes for complete details of the history and physical examination. Patient presented with increased shortness of breath and tachycardia. She has a history of COPD and is on home oxygen at 2 L/m nasal cannula. Chest x-ray showed CHF versus multifocal pneumonia. D-dimer was elevated. A CTA of the lungs showed no evidence of pulmonary edema but did suggest acute CHF. On examination patient is a well-developed well-nourished female in no acute distress. She is alert and oriented 3. There is no cyanosis or diaphoresis breath sounds are decreased but equal bilaterally. Mild dependent rales. No wheezes. Heart regular rate and rhythm. Abdomen soft and nontender with normal bowel sounds. No pedal edema noted. Test results and plan discussed with patient. She is agreeable to hospital admission. The hospitalist, Dr. Hudson, was consulted and accepted admission of the patient.
[2017-09-22] MEDS ORDERED: Nicotine 14 MG PATCH.TD24 TD SCH (20:30)
[2017-09-22] MEDS ORDERED: *HR* HYDROcodone/Acet 5/325 mg TABLET PO PRN (22:31)
[2017-09-22] MEDS ORDERED: Naloxone 0.4 MG/ML INJ IVP PRN (22:31)
[2017-09-22] MEDS ORDERED: *HR* HYDROcodone/Acet 10/325 mg TABLET PO PRN (22:43)
--- NOTE | 2017-09-22 22:53 | Internal Med History&Physical ---
Date of Encounter: 09/22/17 Time of Encounter: 22:00 Internal Medicine - H&P: HPI Chief complaint: Weakness, confusion, shortness of breath Admitted From: Home Plans for Post Hospital Care: Home History of present illness: Ms. Cottrell is a 57 year old female present to emergency room for confusion, weakness, and the shortness of breath. Past medical history is significant for CHF, history of CVA, COPD on home oxygen. Patient said she started to have shortness of breath since yesterday. With no fever, no cough. Patient had one episode of left chest pressure like pain yesterday, lasted about 2 hours. Patient has nausea but no vomiting. Patient denies diaphoresis. Since this morning around 11 AM, she had shaking, right leg weakness, cannot walk well. Patient denies numbness or tingling. She denies urinary or fecal incontinence. Patient still confused and had memory loss. Patient denies abdominal pain, but had diarrhea once this evening, which is watery yellowish stool. Patient said she had IBS and has sometimes diarrhea. In the emergency room, head CT is negative, chest x-ray shows possible pneumonia or CHF, further CTA shows no PE but suggest pulmonary vascular congestion. Patient's lab and ABG are unremarkable. Patient was admitted for further management. Past Med Surg Social Fam HX - Past Medical History Medical history: COPD, hypertension, renal disease Psychiatric history: anxiety, depression - Past Surgical History Surgical History: cholecystectomy, hysterectomy - Social History Smoking Status: Current every day smoker Smokeless Tobacco Status: No Alcohol use: none Drug use: none - Family History Father Living Status: Mother Living Status: Hx Family Cardiac Disorders: Yes Internal Medicine - H&P: Meds Albuterol Sulfate [Proair Hfa] 2 puff IH Q4H PRN 11/11/16 [History] Atorvastatin [Lipitor] 10 mg PO DAILY 11/11/16 [History] Baclofen 20 mg PO BID PRN 11/11/16 [History] Clopidogrel [Plavix] 75 mg PO DAILY 11/11/16 [History] Fluticasone/Salmeterol [Advair 250-50 Diskus] 1 puff IH BID 11/11/16 [History] Furosemide [Lasix] 10 mg PO DAILY 11/11/16 [History] Loperamide [Imodium] 2 mg PO QID PRN 11/11/16 [History] Multivit-Min/Iron/Folic/Lutein [Centrum Silver Women Tablet] 1 tab PO DAILY 06/29 [History] Nitroglycerin [Nitrostat] 0.4 mg SL Q5M PRN 11/11/16 [History] Oxygen 2 l .ROUTE AD 11/11/16 [History] Pregabalin [Lyrica] 100 mg PO QAM 11/11/16 [History] Pregabalin [Lyrica] 200 mg PO HS 11/11/16 [History] Sertraline [Zoloft] 100 mg PO DAILY 11/11/16 [History] Trazodone HCl 100 mg PO DAILY 11/11/16 [History] HYDROcodone/Acet 10/325 mg [[place] 10-325 mg] 1 tab PO Q8H PRN #15 tablet [Rx] Ondansetron ODT [Zofran ODT] 4 mg SL Q6HR #10 tab.rapdis 11/28/16 [Rx] 3 Allergy/AdvReac Type Severity Reaction Status Date / Time cefdinir Allergy Hives Verified 11/28/16 14:31 Penicillins Allergy Hives Verified 11/28/16 14:31 All Systems PM: A 10-system review of systems was performed and is negative for pertinent findings except as documented above in the HPI. - Constitutional Vitals: Temp Pulse Resp BP Pulse Ox 97.5 F L 66 20 97/56 97 09/22/17 16:47 09/22/17 21:00 09/22/17 21:55 09/22/17 21:55 09/22/17 21:00 General appearance: Present: A&O X 2, no acute distress, answers questions appropriately - Head Head exam: Present: atraumatic, normocephalic - Eye Eye exam: Present: PERRL, conjuntiva pink, sclera anicteric Pupils: Present: PERRL - Neck Neck exam general surgery: Present: supple, trachea midline. Absent: lymphadenopathy - Respiratory Respiratory exam: Present: CTAB. Absent: accessory muscle use, rales, rhonchi, wheezes - Cardiovascular Cardiovascular exam: Present: RRR, +S1, +S2. Absent: diastolic murmur, gallop, rubs, systolic murmur - GI/Abdominal GI/Abdominal exam: Present: normal bowel sounds, soft, no peritoneal signs. Absent: distended, tenderness - Extremities Exam Extremities exam: Present: warm, radial pulses palpable and symmetrical. Absent : calf tenderness, cyanotic, pedal edema - Neurological Exam Neurological exam: Present: abnormal gait (Unstable gait), CN II-XII intact, motor sensory deficit (Right leg weakness with strength 4/5), no focal deficits. Absent: pronater drift, facial droop, speech deficit Additional comments: Pt has tremor b/l - Skin Skin exam: Present: dry, intact Internal Med - H&P Results - Labs CBC & Chem 7: 09/22/17 17:35 09/22/17 17:35 - EKG Data -: EKG Interpreted by Myself EKG shows normal: sinus rhythm Rate: normal - Assessment and plan (1) Acute encephalopathy Current Visit: Yes Status: Acute Assessment and plan: With tremor and right leg weakness. History of CVA. Etiology is undetermined. Metabolic versus new acute infarct. Patient's symptoms started from 11AM (12 hours ago), out of TPA window. CT head negative. - Consider MRI in a.m. if pt can pass MRI screen. - Continuous cardiac monitoring - Echo and duplex carotid - Also check TSH, vitamin B12, folic acid, and ammonia level - Continue Plavix and atorvastatin - NIHSS protocol - Patient is on multiple antidepressant and pain medications. Polypharmacy is another differential diagnosis. Will temporarily hold trazodone, Zoloft, Lyrica , and baclofen. (2) Ataxia Current Visit: Yes Status: Acute Assessment and plan: Management as above (3) Right leg weakness Current Visit: Yes Status: Acute Assessment and plan: Patient did describe this weakness is not like previous CVA. Etiology is undetermined. Management as above. (4) DVT prophylaxis Current Visit: No Status: Acute Assessment and plan: Heparin subcutaneously (5) Congestive heart failure Current Visit: No Status: Chronic Assessment and plan: CTA shows congestive heart failure. - We will repeat echo - Place patient on Lasix 20 mg IV daily - Strict I and O - Closely monitor patient Qualifiers: Qualified Code(s): I50.32 - Chronic diastolic (congestive) heart failure (6) History of CVA (cerebrovascular accident) Current Visit: No Status: Chronic Assessment and plan: Continue home medications. Management as above (7) Tobacco abuse Current Visit: No Status: Chronic Assessment and plan: Smoking cessation education. Nicotine patch (8) COPD (chronic obstructive pulmonary disease) Current Visit: No Status: Chronic Assessment and plan: patient has no wheezing. Continue home medications. Qualifiers: COPD type: unspecified COPD Qualified Code(s): J44.9 - Chronic obstructive pulmonary disease, unspecified (9) Chest pain Current Visit: Yes Status: Acute Assessment and plan: Patient has one episode of chest pain yesterday. Chest pain-free at this point. CTA negative for PE. - Continuous cardiac monitoring - 3 sets of troponin to rule out ACS - Echocardiogram - May consider stress test if patient is more stabilized Qualifiers: Chest pain type: unspecified Qualified Code(s): R07.9 - Chest pain, unspecified - Time Spent With Patient Total time spent is greater than 50% in coordination of care (as documented) at patient's floor/unit and/or counseling patient:
[2017-09-23 00:53] LABS: Basophils # 0.1 K/mcL (0.0-0.2); Basophils % 0.6 %; Eosinophils # 0.3 K/mcL (0.0-0.6); Eosinophils % 3.1 %; Hematocrit 41.8 % (35.3-44.9); Hemoglobin 14.3 g/dL (11.5-15.4); Immature Granulocytes % 0.3 % (0-4); Lymphocytes # 2.6 K/mcL (0.6-4.6); Mean Corpuscular HGB Conc 34.2 g/dL (31.6-35.5); Mean Corpuscular Hemoglobin 32.1 pg (28.0-33.3); Mean Corpuscular Volume 93.9 fL (83.0-100.0); Mean Platelet Volume 10.4 fL (9.4-12.4); Monocytes # 0.7 K/mcL (0.0-1.3); Monocytes % 6.3 %; Neutrophils # 7.4 K/mcL (1.6-8.9); Nucleated Red Blood Cells 0.2 /100 WBC (0); Platelet Count 279 K/mcL (140-400); Red Blood Count 4.45 M/mcL (3.82-4.97); Red Cell Distribution Width 13.7 % (11.5-14.5); Segmented Neutrophils % 66.7 %
[2017-09-23 01:14] LABS: BUN/Creatinine Ratio 7 (6-26); Blood Urea Nitrogen 8 mg/dL (6-20); Calcium 9.2 mg/dL (8.6-10.3); Carbon Dioxide 31 mEq/L (23-29); Chloride 102 mEq/L (98-107); Glucose 113 mg/dL (70-105); Magnesium 2.2 mg/dL (1.6-2.6); Osmolality,Calculated 285 (280-300); Phosphorous 3.8 mg/dL (2.7-4.5); Potassium 3.5 mEq/L (3.5-5.1); Sodium 138 mEq/L (136-145); eGFR For African Americans > 60 (> 60); eGFR For Non-African Americans 50 (> 60)
[2017-09-23 01:40] LABS: Vitamin B12 472 pg/mL (250-1100)
[2017-09-23 01:42] LABS: Folate > 22.3 ng/mL (3.0-16.0)
[2017-09-23] MEDS: *HR* Heparin 5,000 UNIT/ML VIAL SQ SCH ×2 (06:24→18:52)
[2017-09-23] MEDS: Budesonide/Formoterol 80/4.5 MDI IH SCH ×4 (07:56→22:46)
[2017-09-23] MEDS: Nicotine 21 MG PATCH.TD24 TD SCH (08:27)
[2017-09-23] MEDS ORDERED: Furosemide 20 MG/2 ML VIAL IVP SCH ×2 (09:00)
[2017-09-23] MEDS: Pregabalin 50 MG CAPSULE PO SCH (12:45)
[2017-09-23] MEDS ORDERED: Nicotine 21 MG PATCH.TD24 TD ONE (13:15)
[2017-09-23] MEDS ORDERED: Nicotine 2 MG GUM BC PRN (13:50)
--- NOTE | 2017-09-23 15:02 | Internal Med Progress Note ---
<Luis Ivory - Last Filed: 09/23/17 14:58> Date of Encounter: 09/23/17 Time of Encounter: 10:25 - Assessment and plan (1) Acute encephalopathy Current Visit: Yes Status: Acute Assessment and plan: With tremor and right leg weakness. History of CVA. Etiology is undetermined. Metabolic versus new acute infarct. Patient's symptoms started from 11AM (12 hours ago), out of TPA window. CT head negative. - Consider MRI in a.m. if pt can pass MRI screen. - Continuous cardiac monitoring - Echo and duplex carotid - Also check TSH, vitamin B12, folic acid, and ammonia level - Continue Plavix and atorvastatin - NIHSS protocol - Patient is on multiple antidepressant and pain medications. Polypharmacy is another differential diagnosis. Will temporarily hold trazodone, Zoloft, Lyrica , and baclofen. Update 09/23 Encephalopathy has seemingly resolved. The patient is no longer having confusion , and the weakness has resolved. MRI is negative for acute ischemia, and echocardiogram shows no evidence of PFO or valvular dysfunction. Left ICA shows 60-79% occlusion. Continue the patient on plavix and Statin (2) Congestive heart failure Current Visit: Yes Status: Chronic Assessment and plan: CTA shows congestive heart failure. - Echocardiogram shows mild diastolic dysfunction with mild pulmonary hypertension - Continue patient on Lasix 20 mg IV daily - Strict I and O, Daily weights Qualifiers: Qualified Code(s): I50.32 - Chronic diastolic (congestive) heart failure (3) History of CVA (cerebrovascular accident) Current Visit: No Status: Chronic Assessment and plan: Chronic left leg weaness. Continue home medications. Management as above (4) Tobacco abuse Current Visit: Yes Status: Chronic Assessment and plan: Smoking cessation education. Nicotine patch (5) COPD (chronic obstructive pulmonary disease) Current Visit: No Status: Chronic Assessment and plan: patient has no wheezing. Continue home medications. Qualifiers: COPD type: unspecified COPD Qualified Code(s): J44.9 - Chronic obstructive pulmonary disease, unspecified (6) Chest pain Current Visit: Yes Status: Acute Assessment and plan: Patient has one episode of chest pain prior to admission which lasted 2 hours. Chest pain-free at this point. CTA negative for PE. - Continuous cardiac monitoring - Troponins remain negative - Echocardiogram does not demonstrate wall motion abnormalities - Patient may benefit from outpatient stress test Qualifiers: Chest pain type: unspecified Qualified Code(s): R07.9 - Chest pain, unspecified (7) DVT prophylaxis Current Visit: No Status: Acute Assessment and plan: Heparin subcutaneously (8) Ataxia Current Visit: Yes Status: Acute Assessment and plan: Management as above - Time Spent With Patient Total time spent is greater than 50% in coordination of care (as documented) at patient's floor/unit and/or counseling patient: - Subjective Interval history: The patient is seen and examined at bedside. Upon questioning, patient says that she is feeling pretty much improved from previous. She is no longer having increasing weakness that she was having before, and she says that her confusion has completely resolved. She does not have any right leg weakness at this time. - Constitutional Vitals: Temp Pulse Resp BP Pulse Ox 97.9 F 63 18 101/70 93 09/23/17 07:18 09/23/17 11:25 09/23/17 11:25 09/23/17 11:25 09/23/17 11:25 General appearance: Present: A&O X 2, no acute distress, answers questions appropriately Exam: Gen: Vitals noted. No acute distress. HEENT: PERRL/EOMI, oropharynx clear, Normocephalic, atraumatic Neck: Supple. No adenopathy. Cardiac: RRR, no murmur, +S1/S2 Pulmonary: CTA bilaterally, no wheezes, rales or rhonchi, equal chest expansion Abdomen: soft, nontender, BS noted, no guarding MSK: ROM intact, no joint swelling noted Extremities: no BLE edema, nontender calf, no cyanosis or clubbing Neuro: A&Ox3, moves all extremities, left lower extremity weakness 3/5, chronic Psych: Appropriate mood and behavior Internal Medicine: Result - Labs CBC & Chem 7: 09/23/17 00:33 09/23/17 00:33 Labs: Short CBC 09/23/17 Range/Units 00:33 WBC 11.1 (4.3-11.1) K/mcL Hgb 14.3 (11.5-15.4) g/dL Hct 41.8 (35.3-44.9) % Plt Count 279 (140-400) K/mcL Neutrophils # 7.4 (1.6-8.9) K/mcL BMP 09/23/17 00:33 Sodium 138 Potassium 3.5 Chloride 102 Carbon Dioxide 31 H BUN 8 Creatinine 1.11 Glucose 113 H Calcium 9.2 Cardiac Enzymes 09/23/17 09/23/17 Range/Units 00:33 06:12 Troponin I < 0.03 < 0.03 (< 0.04) ng/mL - ABG Interpretation ABG results: PT/INR, D-dimer D-Dimer 698 ng/mLFEU (0-500) H 09/22/17 17:35 - Impressions Impressions Echocardiogram 09/23/17 22:41 Impressions: LVEF 60-65%. Normal LV chamber size, wall thickness and function. Mild left ventricular diastolic dysfunction. Normal right ventricular structure and function. Borderline mild pulmonary hypertension. No significant valvular dysfunction. Left Ventricular Wall Motion: Rest Echo Findings All wall segments showed normal motion. Findings: Study Quality * Technically adequate exam. ECG Findings * Normal sinus rhythm. Left Ventricle * LVEF 60-65%. * Normal LV chamber size, wall thickness and function. * Mild left ventricular diastolic dysfunction. Right Ventricle * Normal right ventricular structure and function. Left Atrium * Mildly dilated left atrium. Right Atrium * Mildly dilated right atrium. Interatrial Septum * No evidence of PFO by color Doppler. Aortic Valve * Aortic valve not well visualized. * No aortic regurgitation. * No aortic stenosis. Mitral Valve * Normal mitral valve structure and function. * No mitral stenosis. * No mitral regurgitation. Tricuspid Valve * Normal tricuspid valve structure and function. * Trace tricuspid regurgitation. * Borderline mild pulmonary hypertension. Pulmonic Valve * Pulmonic valve not well visualized. * No pulmonic regurgitation. Aorta * Normally sized aortic root. Pericardium * The pericardium appears normal. IVC * Normal IVC dimensions and inspiratory collapse. Pulmonary Artery * Normal visualized portions of the main pulmonary artery. Brain MRI 09/23/17 22:42 IMPRESSION: No acute brain parenchymal abnormality. Mild opacification of the mastoid air cells bilaterally, right slightly worse than left. D/ / 09/23/2017 10:24:18 Helen Echavarria MD / [facility] Interpreting Provider: Helen Echavarria MD Consult Discharge Plan - Plan Referrals: Efrem Mcbride MD [Primary Care Provider] - <Karthik Garcia T - Last Filed: 09/23/17 15:40> Date of Encounter: 09/23/17 - Assessment and plan (1) DVT prophylaxis Current Visit: No Status: Acute (2) Congestive heart failure Current Visit: Yes Status: Chronic Qualifiers: Qualified Code(s): I50.32 - Chronic diastolic (congestive) heart failure (3) History of CVA (cerebrovascular accident) Current Visit: No Status: Chronic (4) Tobacco abuse Current Visit: Yes Status: Chronic (5) COPD (chronic obstructive pulmonary disease) Current Visit: No Status: Chronic Qualifiers: COPD type: unspecified COPD Qualified Code(s): J44.9 - Chronic obstructive pulmonary disease, unspecified (6) Chest pain Current Visit: Yes Status: Acute Qualifiers: Chest pain type: unspecified Qualified Code(s): R07.9 - Chest pain, unspecified (7) Acute encephalopathy Current Visit: Yes Status: Acute (8) Ataxia Current Visit: Yes Status: Acute - Time Spent With Patient Total time spent is greater than 50% in coordination of care (as documented) at patient's floor/unit and/or counseling patient: - Constitutional Vitals: Temp Pulse Resp BP Pulse Ox 97.9 F 63 18 101/70 93 09/23/17 07:18 09/23/17 11:25 09/23/17 11:25 09/23/17 11:25 09/23/17 11:25 Internal Medicine: Result - Labs CBC & Chem 7: 09/23/17 00:33 09/23/17 00:33 Labs: Short CBC 09/23/17 Range/Units 00:33 WBC 11.1 (4.3-11.1) K/mcL Hgb 14.3 (11.5-15.4) g/dL Hct 41.8 (35.3-44.9) % Plt Count 279 (140-400) K/mcL Neutrophils # 7.4 (1.6-8.9) K/mcL BMP 09/23/17 00:33 Sodium 138 Potassium 3.5 Chloride 102 Carbon Dioxide 31 H BUN 8 Creatinine 1.11 Glucose 113 H Calcium 9.2 Cardiac Enzymes 09/23/17 09/23/17 Range/Units 00:33 06:12 Troponin I < 0.03 < 0.03 (< 0.04) ng/mL - ABG Interpretation ABG results: PT/INR, D-dimer D-Dimer 698 ng/mLFEU (0-500) H 09/22/17 17:35 - Impressions Impressions Echocardiogram 09/23/17 22:41 Impressions: LVEF 60-65%. Normal LV chamber size, wall thickness and function. Mild left ventricular diastolic dysfunction. Normal right ventricular structure and function. Borderline mild pulmonary hypertension. No significant valvular dysfunction. Left Ventricular Wall Motion: Rest Echo Findings All wall segments showed normal motion. Findings: Study Quality * Technically adequate exam. ECG Findings * Normal sinus rhythm. Left Ventricle * LVEF 60-65%. * Normal LV chamber size, wall thickness and function. * Mild left ventricular diastolic dysfunction. Right Ventricle * Normal right ventricular structure and function. Left Atrium * Mildly dilated left atrium. Right Atrium * Mildly dilated right atrium. Interatrial Septum * No evidence of PFO by color Doppler. Aortic Valve * Aortic valve not well visualized. * No aortic regurgitation. * No aortic stenosis. Mitral Valve * Normal mitral valve structure and function. * No mitral stenosis. * No mitral regurgitation. Tricuspid Valve * Normal tricuspid valve structure and function. * Trace tricuspid regurgitation. * Borderline mild pulmonary hypertension. Pulmonic Valve * Pulmonic valve not well visualized. * No pulmonic regurgitation. Aorta * Normally sized aortic root. Pericardium * The pericardium appears normal. IVC * Normal IVC dimensions and inspiratory collapse. Pulmonary Artery * Normal visualized portions of the main pulmonary artery. Brain MRI 09/23/17 22:42 IMPRESSION: No acute brain parenchymal abnormality. Mild opacification of the mastoid air cells bilaterally, right slightly worse than left. D/ / 09/23/2017 10:24:18 Helen Echavarria MD / [facility] Interpreting Provider: Helen Echavarria MD - Attending Attestation I examined this patient and my medical decision-making was reviewed with the Resident Physician on 09/23/17. I agree with the documented findings, disposition and treatment plan as described except to the extent set forth below. This patient was seen and examined at bedside, awake, alert and oriented , work up unremarkable, encephalopathy seem to have resolved. Possibly due to hypoxia from CHF. SFollow ECHO report, PTOT eval, diarrhea is chronic, no indication for treatment, continue lasix, rest as in resident physician's documentation
[2017-09-23] MEDS: *HR* HYDROcodone/Acet 10/325 mg TABLET PO PRN (15:43)
[2017-09-23] MEDS ORDERED: Pregabalin 50 MG CAPSULE PO SCH (21:00)
[2017-09-24] MEDS ORDERED: traZODone 50 MG TABLET PO ONE (01:11)
[2017-09-24] MEDS: Acetaminophen 325 MG TABLET PO PRN (02:14)
[2017-09-24 03:14] LABS: Basophils # 0.1 K/mcL (0.0-0.2); Basophils % 0.6 %; Eosinophils # 0.5 K/mcL (0.0-0.6); Eosinophils % 5.6 %; Hematocrit 42.7 % (35.3-44.9); Hemoglobin 14.2 g/dL (11.5-15.4); Immature Granulocytes % 0.3 % (0-4); Lymphocytes # 2.9 K/mcL (0.6-4.6); Lymphocytes % 30.3 %; Mean Corpuscular HGB Conc 33.3 g/dL (31.6-35.5); Mean Corpuscular Hemoglobin 31.8 pg (28.0-33.3); Mean Corpuscular Volume 95.7 fL (83.0-100.0); Mean Platelet Volume 10.3 fL (9.4-12.4); Monocytes # 0.7 K/mcL (0.0-1.3); Monocytes % 7.8 %; Neutrophils # 5.2 K/mcL (1.6-8.9); Platelet Count 210 K/mcL (140-400); Red Blood Count 4.46 M/mcL (3.82-4.97); Red Cell Distribution Width 13.6 % (11.5-14.5); Segmented Neutrophils % 55.4 %
[2017-09-24 03:21] LABS: Activated Partial Thrombo Time 32.2 Seconds (26.0-36.0)
[2017-09-24 03:31] LABS: Alanine Aminotransferase 8 Units/L (7-52); Albumin 4.2 g/dL (3.5-5.7); Albumin/Globulin Ratio 1.6 (1.1-2.2); Alkaline Phosphatase 87 Units/L (34-104); Aspartate Amino Transferase 16 Units/L (13-39); BUN/Creatinine Ratio 11 (6-26); Bilirubin,Total 0.2 mg/dL (0.3-1.0); Blood Urea Nitrogen 10 mg/dL (6-20); Calcium 9.3 mg/dL (8.6-10.3); Carbon Dioxide 27 mEq/L (23-29); Chloride 101 mEq/L (98-107); Globulin 2.7 g/dL (2.4-3.5); Glucose 102 mg/dL (70-105); Osmolality,Calculated 279 (280-300); Potassium 3.5 mEq/L (3.5-5.1); Sodium 135 mEq/L (136-145); Total Protein 6.9 g/dL (6.4-8.9); eGFR For African Americans > 60 (> 60); eGFR For Non-African Americans > 60 (> 60)
--- NOTE | 2017-09-24 04:23 | Event Note ---
Date of Encounter: 09/24/17 Time of Encounter: 04:17 I responded to a rapid response called on this patient at 2:25 am for sudden change in neurologic status as noted by RN. Patient was noted to have right sided weakness, tremors, and anxiety. Due to sudden onset of right sided deficits, a stroke alert was called. She had STAT head CT, labs, and then videoconference assessment with [facility]. Dr. Guevara ([facility]) assessed patient by video robot. After his assessment, he did not feel patient was suffering from an acute stroke. He does not recommend TPA or transfer to [facility]. He suspects symptoms are due to stress, anxiety, and/or conversion disorder. He recommends psychiatry consultation. He also recommended repeating MRI only if symptoms persist.
[2017-09-24 04:50] LABS: BUN/Creatinine Ratio 11 (6-26); Blood Urea Nitrogen 10 mg/dL (6-20); Calcium 9.3 mg/dL (8.6-10.3); Carbon Dioxide 21 mEq/L (23-29); Chloride 104 mEq/L (98-107); Glucose 96 mg/dL (70-105); Magnesium 1.8 mg/dL (1.6-2.6); Osmolality,Calculated 279 (280-300); Potassium 3.8 mEq/L (3.5-5.1); Sodium 135 mEq/L (136-145); Troponin I 0.04 ng/mL (< 0.04); eGFR For African Americans > 60 (> 60); eGFR For Non-African Americans > 60 (> 60)
--- NOTE | 2017-09-24 06:48 | Electrocardiograph Report ---
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
[2017-09-24] MEDS: Nicotine 21 MG PATCH.TD24 TD SCH (10:35)
[2017-09-24] MEDS: *HR* Heparin 5,000 UNIT/ML VIAL SQ SCH ×2 (10:36→18:46)
[2017-09-24] MEDS: Furosemide 40 MG/4 ML VIAL IVP SCH (10:36)
[2017-09-24] MEDS: Budesonide/Formoterol 80/4.5 MDI IH SCH ×2 (11:31→20:58)
[2017-09-24] MEDS: *HR* HYDROcodone/Acet 10/325 mg TABLET PO PRN (15:51)
--- NOTE | 2017-09-24 16:21 | Consult Note ---
Date of Encounter: 09/24/17 Time of Encounter: 15:00 Assessment & Recommendation (1) Depressive disorder Current visit: Yes Status: Acute (2) Generalized anxiety disorder Current visit: Yes Status: Acute History of Present Illness Patient: new to practice Requesting Physician: Poncho Aldridge DO History of present illness: Consult Placed due to question of Conversion D/O, (was not noted on exam / mental health workup) Pt is a 57 yo, , female, who presents for Anxiety, depression, tobacco use d/o and excessive caffeine use. Pt noted that she feels she is doing " okay today, Pt noted recent exacerbation of anxiety and mood. Pt scored 30/30 on MMSE. Pt remained optimistic about treatment. Pt displayed some OCPD/OCD sympotms additional to depression and anxiety. Because of this pt was educated on fluvoxeme and buspar, including risks benifits and side-effects of current medications to include no medications. Pt was in agreement with treatment plan to increase sertraline, and start buspar for mood and anxiety. Pt was very polite and courteous during the interview process. Pt noted she is optimistic to return home with her ", who was present during the interview. Pt denied any side effects to current medications. Pt noted she felt safe and comfortable on the unit. Pt remained in agreement with treatment plan. Pt noted that she is doing pretty good today. Pt noted she slept 8 hours last night. Pt noted her appetite is okay. Pt rated her depression a 4, on a scale of zero to ten with ten being the worst and zero being none. Pt rate her anxiety a 0, on the same scale. Pt denied any auditory or visual hallucinations. Pt denied any thoughts to harm herself or anyone else. Psychiatric Diagnosis: 1. Depressive D/O 2. General Anxiety D/O 3. Rule out OCPD/OCD Tobacco: 2 PPD Alcohol: Denies Street: Denies Caffeine: 3-6 bottles of mt dew per day. MMSE 30/30 MSE: Alert and Oriented x4 Appearance: neatly groomed dressed in appropriate civilian attire Behavior: friendly, courteous, polite Speech: Fluent, normal tone, normal rate Mood: okay Affect: mood congruent Thought content: no HI noted, no SI noted, no delusions noted Psychosis: none noted, currently not responding to internal stimuli. Thought Process: Linear coherent goal directed Judgment: fair. Insight: fair. 1.Interval hx 2.Continue current medications 3.Review current labs 4.Pt had an opportunity to ask questions and discuss current treatment plan. 5.Supportive therapy was provided 6.Pt encouraged to consider group or individual therapy 7.Pt was in agreement with treatment plan. 8.Pt was educated on the risks benefits and side effects of current medications. 9. Recommend increasing sertraline to 150 mg PO QAM. 10. Recommend starting buspar 5 mg PO TID for anxiety. 11. Recommend pt reduce caffiene intake and reduce tobacco/nicotine intake. CC: Poncho Aldridge, DO Past Med Surg Social Fam HX - Past Medical History Medical history: COPD, hypertension, renal disease - Past Psychiatric History Psychiatric history: Reports: anxiety, depression Family psychiatric history: Yes - Past Surgical History Surgical History: cholecystectomy, hysterectomy - Social History Smoking Status: Current every day smoker Smokeless Tobacco Status: No Alcohol use: none Drug use: none - Family History Father Living Status: Age at : 58 Mother Living Status: Age at : 86 Cause of : Stroke Hx Family Cardiac Disorders: Yes Hx Family Respiratory Disorders: Yes (COPD) Hx Family Cancer: No Hx Family GI Disorders: No Brother Living Status: Age at : 52 Cause of : NV Hx Family Cardiac Disorders: Yes (NV) Medications & Allergies Albuterol Sulfate [Proair Hfa] 2 puff IH Q4H PRN 11/11/16 [History] Atorvastatin [Lipitor] 10 mg PO DAILY 11/11/16 [History] Baclofen 20 mg PO BID PRN 11/11/16 [History] Clopidogrel [Plavix] 75 mg PO DAILY 11/11/16 [History] Fluticasone/Salmeterol [Advair 250-50 Diskus] 1 puff IH BID 11/11/16 [History] Furosemide [Lasix] 10 mg PO DAILY 11/11/16 [History] Loperamide [Imodium] 2 mg PO QID PRN 11/11/16 [History] Multivit-Min/Iron/Folic/Lutein [Centrum Silver Women Tablet] 1 tab PO DAILY 06/29 [History] Nitroglycerin [Nitrostat] 0.4 mg SL Q5M PRN 11/11/16 [History] Oxygen 2 l .ROUTE AD 11/11/16 [History] Pregabalin [Lyrica] 100 mg PO HS 11/11/16 [History] Pregabalin [Lyrica] 200 mg PO QAM 11/11/16 [History] Sertraline [Zoloft] 100 mg PO DAILY 11/11/16 [History] Trazodone HCl 100 mg PO DAILY 11/11/16 [History] HYDROcodone/Acet 10/325 mg [Clayton 10-325 mg] 1 tab PO Q8H PRN #15 tablet [Rx] Ondansetron ODT [Zofran ODT] 4 mg SL Q6HR PRN 09/23/17 [History] 3 Allergy/AdvReac Type Severity Reaction Status Date / Time cefdinir Allergy Hives Verified 09/23/17 13:24 Penicillins Allergy Hives Verified 09/23/17 13:24 Psychiatry Exam - Constitutional Vitals: Temp Pulse Resp BP Pulse Ox 97.8 F 77 17 102/74 92 09/24/17 11:54 09/24/17 11:54 09/24/17 11:54 09/24/17 11:54 09/24/17 11:54 - Psychiatric Patient Orientation: Yes Person, Yes Time, Yes Place, Yes Circumstance Level of alertness: Alert Behavior: calm, cooperative Psychomotor activity: Normal Eye Contact: Maintains Eye Contact Mood Description: Euthymic/stable Affect description: congruent with mood Speech Volume: Normal Speech pattern: normal rate, normal rhythm, normal tone, fluent Language & Vocabulary: consistent with education Thought Process: Intact, Logical, Linear, Goal Oriented Thought Content: Yes Intact Attention Span Ability: Capable of Focused Attention Memory Description: Grossly Intact Patient Reliability: Reliable Historian Fund of knowledge: Yes average Intelligence Estimate: Average Judgment: Fair Insight: Partial (Insight fair) Results - Labs Labs: Laboratory Last Values WBC 9.5 K/mcL (4.3-11.1) 09/24/17 02:53 RBC 4.46 M/mcL (3.82-4.97) 09/24/17 02:53 Hgb 14.2 g/dL (11.5-15.4) 09/24/17 02:53 Hct 42.7 % (35.3-44.9) 09/24/17 02:53 MCV 95.7 fL (83.0-100.0) 09/24/17 02:53 MCH 31.8 pg (28.0-33.3) 09/24/17 02:53 MCHC 33.3 g/dL (31.6-35.5) 09/24/17 02:53 RDW 13.6 % (11.5-14.5) 09/24/17 02:53 Plt Count 210 K/mcL (140-400) 09/24/17 02:53 MPV 10.3 fL (9.4-12.4) 09/24/17 02:53 Immature Gran % 0.3 % (0-4) 09/24/17 02:53 Seg Neutrophils % 55.4 % 09/24/17 02:53 Lymphocytes % 30.3 % 09/24/17 02:53 Monocytes % 7.8 % 09/24/17 02:53 Eosinophils % 5.6 % 09/24/17 02:53 Basophils % 0.6 % 09/24/17 02:53 Neutrophils # 5.2 K/mcL (1.6-8.9) 09/24/17 02:53 Lymphocytes # 2.9 K/mcL (0.6-4.6) 09/24/17 02:53 Monocytes # 0.7 K/mcL (0.0-1.3) 09/24/17 02:53 Eosinophils # 0.5 K/mcL (0.0-0.6) 09/24/17 02:53 Basophils # 0.1 K/mcL (0.0-0.2) 09/24/17 02:53 Nucleated RBCs/100 WBC 0.2 /100 WBC (0) H 09/23/17 00:33 PT 11.0 Seconds (9.4-12.1) 09/24/17 02:24 INR 1.0 09/24/17 02:24 APTT 32.2 Seconds (26.0-36.0) 09/24/17 02:24 D-Dimer 698 ng/mLFEU (0-500) H 09/22/17 17:35 VBG pH 7.34 pH Units (7.32-7.42) 09/22/17 19:20 VBG pCO2 48 mmHg (41-51) 09/22/17 19:20 VBG pO2 73 mmHg (25-50) H 09/22/17 19:20 VBG HCO3 26 mEq/L (21-27) 09/22/17 19:20 Sodium 135 mEq/L (136-145) L 09/24/17 02:53 Potassium 3.5 mEq/L (3.5-5.1) 09/24/17 02:53 Chloride 101 mEq/L (98-107) 09/24/17 02:53 Carbon Dioxide 27 mEq/L (23-29) 09/24/17 02:53 BUN 10 mg/dL (6-20) 09/24/17 02:53 Creatinine 0.93 mg/dL (0.60-1.20) 09/24/17 02:53 Est GFR ( Amer) > 60 (> 60) 09/24/17 02:53 Est GFR (Non-Af Amer) > 60 (> 60) 09/24/17 02:53 BUN/Creatinine Ratio 11 (6-26) 09/24/17 02:53 Glucose 102 mg/dL (70-105) 09/24/17 02:53 POC Glucose 98 mg/dL (70-99) 09/24/17 02:27 Calculated Osmolality 279 (280-300) L 09/24/17 02:53 Lactic Acid 2.0 mmol/L (0.5-2.2) 09/22/17 19:11 Calcium 9.3 mg/dL (8.6-10.3) 09/24/17 02:53 Phosphorus 3.8 mg/dL (2.7-4.5) 09/23/17 00:33 Magnesium 1.8 mg/dL (1.6-2.6) 09/24/17 02:24 Total Bilirubin 0.2 mg/dL (0.3-1.0) L 09/24/17 02:53 AST 16 Units/L (13-39) 09/24/17 02:53 ALT 8 Units/L (7-52) 09/24/17 02:53 Alkaline Phosphatase 87 Units/L (34-104) 09/24/17 02:53 Ammonia 30 mcmol/L (16-53) 09/23/17 00:33 Troponin I < 0.03 ng/mL (< 0.04) 09/24/17 14:19 B-Natriuretic Peptide 183 pg/mL (Less than 100) H 09/22/17 17:35 Serum Total Protein 6.9 g/dL (6.4-8.9) 09/24/17 02:53 Albumin 4.2 g/dL (3.5-5.7) 09/24/17 02:53 Globulin 2.7 g/dL (2.4-3.5) 09/24/17 02:53 Albumin/Globulin Ratio 1.6 (1.1-2.2) 09/24/17 02:53 Vitamin B12 472 pg/mL (250-1100) 09/23/17 00:33 Folate > 22.3 ng/mL (3.0-16.0) H 09/23/17 00:33 TSH 1.654 mcIU/mL (0.340-5.600) 09/23/17 00:33 - Impressions Impressions Brain MRI 09/23/17 22:42 IMPRESSION: No acute brain parenchymal abnormality. Mild opacification of the mastoid air cells bilaterally, right slightly worse than left. D/ / 09/23/2017 10:24:18 Helen Echavarria MD / khris Interpreting Provider: Helen Echavarria MD Head CT 09/24/17 02:50 IMPRESSION: No acute intracranial abnormality. D/ / 09/24/2017 07:20:57 Sami Damon / khris Interpreting Provider: Sami Damon Consult Discharge Plan - Plan Referrals: Efrem Mcbride MD [Primary Care Provider] - 09/30/17 3:15 pm
--- NOTE | 2017-09-24 17:59 | Internal Med Progress Note ---
<Luis Ivory - Last Filed: 09/24/17 17:55> Date of Encounter: 09/24/17 Time of Encounter: 10:00 - Assessment and plan (1) Acute encephalopathy Current Visit: Yes Status: Acute Assessment and plan: With tremor and right leg weakness. History of CVA. Etiology is undetermined. Metabolic versus new acute infarct. Patient's symptoms started from 11AM (12 hours ago), out of TPA window. CT head negative. - Consider MRI in a.m. if pt can pass MRI screen. - Continuous cardiac monitoring - Echo and duplex carotid - Also check TSH, vitamin B12, folic acid, and ammonia level - Continue Plavix and atorvastatin - NIHSS protocol - Patient is on multiple antidepressant and pain medications. Polypharmacy is another differential diagnosis. Will temporarily hold trazodone, Zoloft, Lyrica , and baclofen. Update 09/24 Encephalopathy has seemingly resolved. The patient is no longer having confusion, and the weakness has resolved. MRI is negative for acute ischemia Echocardiogram shows no evidence of PFO or valvular dysfunction. Left ICA shows 60-79% occlusion. She did have an incident with repeat symptoms overnight which resulted in stroke alert At that time acute stroke was ruled out Neurology recommended repeat MRI only if symptoms persist Psychiatric consult was obtained, anxiety is present but no acute psychosis We will follow the recommendations on psych med changes per psychiatry Likely discharge tomorrow Continue the patient on plavix and Statin (2) Congestive heart failure Current Visit: Yes Status: Chronic Assessment and plan: CTA shows congestive heart failure. - Echocardiogram shows mild diastolic dysfunction with mild pulmonary hypertension - Continue patient on Lasix 20 mg IV daily - Strict I and O, Daily weights Qualifiers: Qualified Code(s): I50.32 - Chronic diastolic (congestive) heart failure (3) History of CVA (cerebrovascular accident) Current Visit: No Status: Chronic Assessment and plan: Chronic left leg weaness. Continue home medications. Management as above (4) Tobacco abuse Current Visit: Yes Status: Chronic Assessment and plan: Smoking cessation education. Nicotine patch (5) COPD (chronic obstructive pulmonary disease) Current Visit: No Status: Chronic Assessment and plan: patient has no wheezing. Continue home medications. Qualifiers: COPD type: unspecified COPD Qualified Code(s): J44.9 - Chronic obstructive pulmonary disease, unspecified (6) Chest pain Current Visit: Yes Status: Acute Assessment and plan: Patient has one episode of chest pain prior to admission which lasted 2 hours. Chest pain-free at this point. CTA negative for PE. - Continuous cardiac monitoring - Troponins remain negative - Echocardiogram does not demonstrate wall motion abnormalities - Patient may benefit from outpatient stress test Qualifiers: Chest pain type: unspecified Qualified Code(s): R07.9 - Chest pain, unspecified (7) DVT prophylaxis Current Visit: No Status: Acute Assessment and plan: Heparin subcutaneously (8) Ataxia Current Visit: Yes Status: Acute Assessment and plan: Management as above - Time Spent With Patient Total time spent is greater than 50% in coordination of care (as documented) at patient's floor/unit and/or counseling patient: - Subjective Interval history: The patient is seen and examined at bedside. Overnight she had similar symptoms to her arrival, noting facial droop and confusion as well as some weakness. A rapid response called and the patient received a stat head CT which was negative for any changes. It should be noted that the patient did receive a dose of trazodone last night. A stroke alert was called and the patient was taken to the ED for evaluation via telemedicine with [facility]. At that time the neurologist did not recommend any further action because he did not believe the stroke was present, and instead suggested that a psychiatric consultation be sought. The patients symptoms lasted for approximately three hours in total, and then resolved spontaneously. - Constitutional Vitals: Temp Pulse Resp BP Pulse Ox 98.6 F 77 18 110/66 92 09/24/17 16:04 09/24/17 16:04 09/24/17 16:04 09/24/17 16:04 09/24/17 16:04 General appearance: Present: A&O X 2, no acute distress, answers questions appropriately Exam: Gen: Vitals noted. No acute distress. HEENT: PERRL/EOMI, oropharynx clear, Normocephalic, atraumatic Neck: Supple. No adenopathy. Cardiac: RRR, no murmur, +S1/S2 Pulmonary: CTA bilaterally, no wheezes, rales or rhonchi, equal chest expansion Abdomen: soft, nontender, BS noted, no guarding MSK: ROM intact, no joint swelling noted Extremities: no BLE edema, nontender calf, no cyanosis or clubbing Neuro: A&Ox3, moves all extremities, left lower extremity weakness 3/5, chronic Psych: Appropriate mood and behavior Internal Medicine: Result - Labs CBC & Chem 7: 09/24/17 02:53 09/24/17 02:53 Labs: Short CBC 09/24/17 Range/Units 02:53 WBC 9.5 (4.3-11.1) K/mcL Hgb 14.2 (11.5-15.4) g/dL Hct 42.7 (35.3-44.9) % Plt Count 210 (140-400) K/mcL Neutrophils # 5.2 (1.6-8.9) K/mcL BMP 09/24/17 09/24/17 02:24 02:53 Sodium 135 L 135 L Potassium 3.8 3.5 Chloride 104 101 Carbon Dioxide 21 L 27 BUN 10 10 Creatinine 0.91 0.93 Glucose 96 102 Calcium 9.3 9.3 Cardiac Enzymes 09/24/17 09/24/17 09/24/17 Range/Units 02:24 09:10 14:19 Troponin I 0.04 H* < 0.03 < 0.03 (< 0.04) ng/mL Liver Function 09/24/17 Range/Units 02:53 Total Bilirubin 0.2 L (0.3-1.0) mg/dL AST 16 (13-39) Units/L ALT 8 (7-52) Units/L Alkaline Phosphatase 87 (34-104) Units/L Albumin 4.2 (3.5-5.7) g/dL - ABG Interpretation ABG results: PT/INR, D-dimer PT 11.0 Seconds (9.4-12.1) 09/24/17 02:24 D-Dimer 698 ng/mLFEU (0-500) H 09/22/17 17:35 - Impressions Impressions Brain MRI 09/23/17 22:42 IMPRESSION: No acute brain parenchymal abnormality. Mild opacification of the mastoid air cells bilaterally, right slightly worse than left. D/ / 09/23/2017 10:24:18 Helen Echavarria MD / khris Interpreting Provider: Helen Echavarria MD Head CT 09/24/17 02:50 IMPRESSION: No acute intracranial abnormality. D/ / 09/24/2017 07:20:57 Sami Damon / khris Interpreting Provider: Sami Damon Consult Discharge Plan - Plan Referrals: Efrem Mcbride MD [Primary Care Provider] - 09/30/17 3:15 pm <Poncho Aldridge - Last Filed: 09/24/17 19:02> Date of Encounter: 09/24/17 - Assessment and plan (1) Toxic encephalopathy Current Visit: Yes Status: Acute (2) Congestive heart failure Current Visit: Yes Status: Chronic Qualifiers: Qualified Code(s): I50.32 - Chronic diastolic (congestive) heart failure (3) History of CVA (cerebrovascular accident) Current Visit: No Status: Chronic (4) Tobacco abuse Current Visit: Yes Status: Chronic (5) COPD (chronic obstructive pulmonary disease) Current Visit: No Status: Chronic Qualifiers: COPD type: unspecified COPD Qualified Code(s): J44.9 - Chronic obstructive pulmonary disease, unspecified (6) Chest pain Current Visit: Yes Status: Acute Qualifiers: Chest pain type: unspecified Qualified Code(s): R07.9 - Chest pain, unspecified (7) Acute encephalopathy Current Visit: Yes Status: Acute (8) Ataxia Current Visit: Yes Status: Acute (9) DVT prophylaxis Current Visit: No Status: Acute (10) Chronic respiratory failure with hypoxia Current Visit: Yes Status: Chronic - Time Spent With Patient Total time spent is greater than 50% in coordination of care (as documented) at patient's floor/unit and/or counseling patient: - Constitutional Vitals: Temp Pulse Resp BP Pulse Ox 98.6 F 77 18 110/66 92 09/24/17 16:04 09/24/17 16:04 09/24/17 16:04 09/24/17 16:04 09/24/17 16:04 Internal Medicine: Result - Labs CBC & Chem 7: 09/24/17 02:53 09/24/17 02:53 Labs: Short CBC 09/24/17 Range/Units 02:53 WBC 9.5 (4.3-11.1) K/mcL Hgb 14.2 (11.5-15.4) g/dL Hct 42.7 (35.3-44.9) % Plt Count 210 (140-400) K/mcL Neutrophils # 5.2 (1.6-8.9) K/mcL BMP 09/24/17 09/24/17 02:24 02:53 Sodium 135 L 135 L Potassium 3.8 3.5 Chloride 104 101 Carbon Dioxide 21 L 27 BUN 10 10 Creatinine 0.91 0.93 Glucose 96 102 Calcium 9.3 9.3 Cardiac Enzymes 09/24/17 09/24/17 09/24/17 Range/Units 02:24 09:10 14:19 Troponin I 0.04 H* < 0.03 < 0.03 (< 0.04) ng/mL Liver Function 09/24/17 Range/Units 02:53 Total Bilirubin 0.2 L (0.3-1.0) mg/dL AST 16 (13-39) Units/L ALT 8 (7-52) Units/L Alkaline Phosphatase 87 (34-104) Units/L Albumin 4.2 (3.5-5.7) g/dL - ABG Interpretation ABG results: PT/INR, D-dimer PT 11.0 Seconds (9.4-12.1) 09/24/17 02:24 D-Dimer 698 ng/mLFEU (0-500) H 09/22/17 17:35 - Impressions Impressions Brain MRI 09/23/17 22:42 IMPRESSION: No acute brain parenchymal abnormality. Mild opacification of the mastoid air cells bilaterally, right slightly worse than left. D/ / 09/23/2017 10:24:18 Helen Echavarria MD / khris Interpreting Provider: Helen Echavarria MD Head CT 09/24/17 02:50 IMPRESSION: No acute intracranial abnormality. D/ / 09/24/2017 07:20:57 Sami Damon / khris Interpreting Provider: Sami Damon - Attending Attestation I examined this patient and my medical decision-making was reviewed with the Resident Physician on 09/24/17. I agree with the documented findings, disposition and treatment plan as described except to the extent set forth below. Ms Cottrell is currently admitted for acute encephalopathy and concern for CVA. She remains moderate to high risk due to potential for worsening clinical status. Ms Cottrell is resting at this time. No fever or chills. Had stroke alert last night. Psych to see today. Exam alert Comfortable Mucus membranes dry Heart not tachy No wheeze I/P 1. Encephalopathy 2. Depression Further diagnoses and plan as above.
[2017-09-24] MEDS ORDERED: traZODone 50 MG TABLET PO SCH (21:00)
[2017-09-25] MEDS: Acetaminophen 325 MG TABLET PO PRN (01:05)
[2017-09-25] MEDS: *HR* Heparin 5,000 UNIT/ML VIAL SQ SCH (06:14)
--- NOTE | 2017-09-25 09:00 | Discharge Summary ---
<Luis Ivory - Last Filed: 09/25/17 14:42> - NOTES TO OUTPATIENT PROVIDER Notes to Outpatient Provider: Patient was admitted with stroke-like symptoms, stroke alert did not reveal acute infarct. Problems initially resolved, however returned overnight several days into admission. She was reevaluated for stroke, and the neurologist from [facility] recommended psych consult. Psych saw the patient and recommended modification to home med regimen. Additionally, the patient did have evidence of fluid overload and required diuresis, and she qualified for home O2. Ultimately, she may benefit from outpatient stress test. Date of Encounter: 09/25/17 Time of Encounter: 14:42 - Discharge Diagnosis (1) Acute encephalopathy Priority: Primary Status: Acute Assessment and Plan: With tremor and right leg weakness. History of CVA. Etiology is undetermined. Metabolic versus new acute infarct. Patient's symptoms started from 11AM (12 hours ago), out of TPA window. CT head negative. - Consider MRI in a.m. if pt can pass MRI screen. - Continuous cardiac monitoring - Echo and duplex carotid - Also check TSH, vitamin B12, folic acid, and ammonia level - Continue Plavix and atorvastatin - NIHSS protocol - Patient is on multiple antidepressant and pain medications. Polypharmacy is another differential diagnosis. Will temporarily hold trazodone, Zoloft, Lyrica , and baclofen. Update 09/25 Encephalopathy has seemingly resolved. The patient is no longer having confusion, and the weakness has resolved. MRI is negative for acute ischemia Echocardiogram shows no evidence of PFO or valvular dysfunction. Left ICA shows 60-79% occlusion. She did have an incident with repeat symptoms overnight which resulted in stroke alert At that time acute stroke was ruled out Neurology recommended repeat MRI only if symptoms persist Psychiatric consult was obtained, anxiety is present but no acute psychosis We will follow the recommendations on psych med changes per psychiatry Continue the patient on plavix and Statin (2) Chronic respiratory failure with hypoxia Priority: Secondary Status: Chronic Assessment and Plan: Patient has been told before that she requires continuous O2 at all times, but was wearing it only at night Qualified for Home O2 (3) History of CVA (cerebrovascular accident) Priority: Secondary Status: Chronic Assessment and Plan: Chronic left leg weaness. Continue home medications. Management as above (4) Tobacco abuse Priority: Secondary Status: Chronic Assessment and Plan: Smoking cessation education. (5) COPD (chronic obstructive pulmonary disease) Priority: Secondary Status: Chronic Assessment and Plan: patient has no wheezing. Continue home medications. Qualifiers: COPD type: unspecified COPD Qualified Code(s): J44.9 - Chronic obstructive pulmonary disease, unspecified (6) Chest pain Priority: Secondary Status: Resolved Assessment and Plan: Patient has one episode of chest pain prior to admission which lasted 2 hours. Chest pain-free at this point. CTA negative for PE. - Continuous cardiac monitoring - Troponins remain negative - Echocardiogram does not demonstrate wall motion abnormalities - Patient may benefit from outpatient stress test Qualifiers: Chest pain type: unspecified Qualified Code(s): R07.9 - Chest pain, unspecified (7) Ataxia Priority: Secondary Status: Chronic Assessment and Plan: Management as above (8) Diastolic heart failure Priority: Secondary Status: Acute Assessment and Plan: CTA shows congestive heart failure. - Echocardiogram shows mild diastolic dysfunction with mild pulmonary hypertension - Continue patient on Lasix 20 mg PO daily - Daily weights are necessary Qualifiers: Heart failure chronicity: acute on chronic Qualified Code(s): I50.33 - Acute on chronic diastolic (congestive) heart failure Hospital course: Ms. Cottrell is a 57 year old female with history of CVA, CAD, COPD presented to [facility] with right sided weakness, SOB and confusion for 2 days. She was admitted and worked up for CVA, however there was no evidence found that there was an ischemic process at play. She had additional symptoms overnight during her admission, which likewise resolved spontaneously. She was evaluated by psychiatry for possible causes, and they recommended tighter control of anxiety , and modified her medications. While here, the patient was found to be consistently hypoxic at rest and with exertion. She qualified for Home O2. For more detailed information regarding the patient's hospital course, please see specific assessments. - Time Spent with Patient Total time spent providing and/or coordinating discharge services: - Discharge Medications Prescriptions: Buspirone HCl [Buspar] 5 mg PO TID 30 Days #90 tablet Sertraline [Zoloft] 150 mg PO DAILY 30 Days #45 tablet Home Medications: Albuterol Sulfate [Proair Hfa] 2 puff IH Q4H PRN 11/11/16 [History] Atorvastatin [Lipitor] 10 mg PO DAILY 11/11/16 [History] Baclofen 20 mg PO BID PRN 11/11/16 [History] Clopidogrel [Plavix] 75 mg PO DAILY 11/11/16 [History] Fluticasone/Salmeterol [Advair 250-50 Diskus] 1 puff IH BID 11/11/16 [History] Furosemide [Lasix] 10 mg PO DAILY 11/11/16 [History] Loperamide [Imodium] 2 mg PO QID PRN 11/11/16 [History] Multivit-Min/Iron/Folic/Lutein [Centrum Silver Women Tablet] 1 tab PO DAILY 06/29 [History] Nitroglycerin [Nitrostat] 0.4 mg SL Q5M PRN 11/11/16 [History] Oxygen 2 l .ROUTE AD 11/11/16 [History] Pregabalin [Lyrica] 100 mg PO HS 11/11/16 [History] Pregabalin [Lyrica] 200 mg PO QAM 11/11/16 [History] Trazodone HCl 100 mg PO DAILY 11/11/16 [History] HYDROcodone/Acet 10/325 mg [[place] 10-325 mg] 1 tab PO Q8H PRN #15 tablet [Rx] Ondansetron ODT [Zofran ODT] 4 mg SL Q6HR PRN 09/23/17 [History] Buspirone HCl [Buspar] 5 mg PO TID 30 Days #90 tablet 09/25/17 [Rx] Sertraline [Zoloft] 150 mg PO DAILY 30 Days #45 tablet 09/25/17 [Rx] Allergies/Adverse Reactions: 3 Allergy/AdvReac Type Severity Reaction Status Date / Time cefdinir Allergy Hives Verified 09/23/17 13:24 Penicillins Allergy Hives Verified 09/23/17 13:24 Date of admission: 09/22/17 22:31 Primary care physician: Efrem Mcbride MD Consults: 09/22/17 23:32 Consult to Pastoral Services [CONS] Routine Comment: 09/23/17 13:51 Consult to Physical Therapy [CONS] Routine Comment: Evaluate, develop and implement POC Reason for Consult: weakness Does patient have active BEDREST order?: No Is patient medically & hemodynamically stable?: Yes 09/24/17 08:24 Consult to Nurse Navigator [CONS] Routine Comment: Acute diasolic CHF 09/24/17 11:16 Consult to Psychiatry [CONS] Routine Consulting Provider: Kamini Calderon Reason for Consult: Possible conversion disorder per neurology Call Completed: No Discharging clinician: Luis Ivory Anticipated date of discharge: 09/25/17 - Constitutional Vitals: Temp Pulse Resp BP Pulse Ox 97.9 F 73 17 126/79 97 09/25/17 07:00 09/25/17 07:00 09/25/17 07:00 09/25/17 07:00 09/25/17 07:00 General appearance: Present: A&O X 2, no acute distress, answers questions appropriately Exam: Gen: Vitals noted. No acute distress. HEENT: Normocephalic, atraumatic Neck: Supple. No adenopathy. Cardiac: RRR, no murmur, +S1/S2 Pulmonary: Minimal wheezes and rales noted b/l Abdomen: soft, nontender, BS noted, no guarding MSK: ROM intact, no joint swelling noted Extremities: no BLE edema, nontender calf, no cyanosis or clubbing Neuro: A&Ox3, moves all extremities, left lower extremity weakness 3/5, chronic Psych: Appropriate mood and behavior - Patient Status Disposition: Home, Self-Care Condition: Good Overall status at discharge: patient is progressing back to baseline - Discharge Instructions Instructions: Buspirone (By mouth), Sertraline (By mouth), How to Stop Smoking (GEN), Generalized Anxiety Disorder (DC) Follow Up With: Efrem Mcbride MD [Primary Care Provider] - 09/30/17 3:15 pm Additional Instructions: Continue medications as prescribed For additional or returning symptoms, please return to the ED Follow-up with PCP in 2-3 days, follow-up with specialists as directed - Diet and Activity Activity: increase activity as tolerated, wear oxygen at all times Diet: low salt diet <Poncho Aldridge - Last Filed: 09/25/17 18:23> Date of Encounter: 09/25/17 - Discharge Diagnosis (1) Diastolic heart failure Priority: Primary Status: Acute Qualifiers: Heart failure chronicity: acute on chronic Qualified Code(s): I50.33 - Acute on chronic diastolic (congestive) heart failure (2) Chronic respiratory failure with hypoxia Status: Chronic (3) History of CVA (cerebrovascular accident) Status: Chronic (4) Tobacco abuse Status: Chronic (5) COPD (chronic obstructive pulmonary disease) Status: Chronic Qualifiers: COPD type: unspecified COPD Qualified Code(s): J44.9 - Chronic obstructive pulmonary disease, unspecified (6) Chest pain Status: Resolved Qualifiers: Chest pain type: unspecified Qualified Code(s): R07.9 - Chest pain, unspecified (7) Acute encephalopathy Status: Acute (8) Ataxia Status: Chronic Hospital course: Ms. Cottrell is a 57 year old female - Time Spent with Patient Total time spent providing and/or coordinating discharge services: 38min Date of admission: 09/22/17 22:31 Primary care physician: Efrem Mcbride MD Consults: 09/22/17 23:32 Consult to Pastoral Services [CONS] Routine Comment: 09/23/17 13:51 Consult to Physical Therapy [CONS] Routine Comment: Evaluate, develop and implement POC Reason for Consult: weakness Does patient have active BEDREST order?: No Is patient medically & hemodynamically stable?: Yes 09/24/17 08:24 Consult to Nurse Navigator [CONS] Routine Comment: Acute diasolic CHF 09/24/17 11:16 Consult to Psychiatry [CONS] Routine Consulting Provider: Psychiatry Yumiko Reason for Consult: Possible conversion disorder per neurology Call Completed: No - Constitutional Vitals: Temp Pulse Resp BP Pulse Ox 97.9 F 84 18 107/74 94 09/25/17 07:00 09/25/17 11:00 09/25/17 11:27 09/25/17 11:00 09/25/17 12:06 - Attending Attestation I examined this patient and my medical decision-making was reviewed with the Resident Physician on 09/25/17. I agree with the documented findings, disposition and treatment plan as described except to the extent set forth below. Ms Cottrell has been admitted for stroke like symptoms. All work up negative thus far. Her meds were adjusted per psych. She has qualified for continuous oxygen. She is currently afebrile and ready for discharge. Exam alert Comfortable Mucus membranes dry Heart distant No wheeze Plan D/C home today
[2017-09-25] MEDS: Pregabalin 50 MG CAPSULE PO SCH (09:04)
[2017-09-25] MEDS: Nicotine 21 MG PATCH.TD24 TD SCH (09:04)
[2017-09-25] MEDS: Furosemide 40 MG/4 ML VIAL IVP SCH (09:05)
[2017-09-25] MEDS: *HR* HYDROcodone/Acet 10/325 mg TABLET PO PRN (09:22)
[2017-09-25 11:25] VITALS: BP 107/74
[2017-09-25] MEDS: Budesonide/Formoterol 80/4.5 MDI IH SCH (11:27)
--- NOTE | 2017-09-26 13:39 | Physician Discharge Referral ---
Home Health/Hosp Referral Info Transfer to: Home Health Provider in Charge Post Discharge: PCP - Diagnosis (1) Diastolic heart failure Priority: Primary Status: Acute (2) Chronic respiratory failure with hypoxia Priority: Primary Status: Chronic (3) History of CVA (cerebrovascular accident) Priority: Secondary Status: Chronic (4) Tobacco abuse Priority: Secondary Status: Chronic (5) COPD (chronic obstructive pulmonary disease) Priority: Secondary Status: Chronic (6) Chest pain Priority: Secondary Status: Resolved (7) Acute encephalopathy Priority: Secondary Status: Acute (8) Ataxia Priority: Secondary Status: Chronic - Respiratory Orders Oxygen / L per min (Maintain saturation of 90%) Smoking Cessation: Smoking cessation has been advised. For more information, call the [employer] Tobacco Quit Line at 2-913-EVSK-NOW. - Diet/Nutrition Diet/Nutrition Orders: Cardiac - Activity Activity Orders: Up ad alexis - Services Needed Following services are medically necessary services: Nursing, Physical Therapy, Occupational Therapy - Transfer Medications Prescriptions: Buspirone HCl [Buspar] 5 mg PO TID 30 Days #90 tablet Sertraline [Zoloft] 150 mg PO DAILY 30 Days #45 tablet Home Medications: Albuterol Sulfate [Proair Hfa] 2 puff IH Q4H PRN 11/11/16 [History] Atorvastatin [Lipitor] 10 mg PO DAILY 11/11/16 [History] Baclofen 20 mg PO BID PRN 11/11/16 [History] Clopidogrel [Plavix] 75 mg PO DAILY 11/11/16 [History] Fluticasone/Salmeterol [Advair 250-50 Diskus] 1 puff IH BID 11/11/16 [History] Furosemide [Lasix] 10 mg PO DAILY 11/11/16 [History] Loperamide [Imodium] 2 mg PO QID PRN 11/11/16 [History] Multivit-Min/Iron/Folic/Lutein [Centrum Silver Women Tablet] 1 tab PO DAILY 06/29 [History] Nitroglycerin [Nitrostat] 0.4 mg SL Q5M PRN 11/11/16 [History] Oxygen 2 l .ROUTE AD 11/11/16 [History] Pregabalin [Lyrica] 100 mg PO HS 11/11/16 [History] Pregabalin [Lyrica] 200 mg PO QAM 11/11/16 [History] Trazodone HCl 100 mg PO DAILY 11/11/16 [History] HYDROcodone/Acet 10/325 mg [[place] 10-325 mg] 1 tab PO Q8H PRN #15 tablet [Rx] Ondansetron ODT [Zofran ODT] 4 mg SL Q6HR PRN 09/23/17 [History] Buspirone HCl [Buspar] 5 mg PO TID 30 Days #90 tablet 09/25/17 [Rx] Sertraline [Zoloft] 150 mg PO DAILY 30 Days #45 tablet 09/25/17 [Rx] Allergies/Adverse Reactions: 3 Allergy/AdvReac Type Severity Reaction Status Date / Time cefdinir Allergy Hives Verified 09/23/17 13:24 Penicillins Allergy Hives Verified 09/23/17 13:24 Certification: Further, I certify that my clinical findings support that this patient is homebound (i.e. absences from home require considerable and taxing effort and are for medical reasons or catholic services or infrequently or short duration when for other reasons) because: Homebound Reason: Patient requires assistance of a person or device to safely leave home, Severity of cardiac or pulmonary status limits activity tolerance Attestation: My signature below is to certify that this patient is under my care and that I, or nurse practitioner, or a physician's senior court office assistant working with me, has a face-to -face encounter with this patient.
== END 2017-09-25 15:24 | disposition home or self-care (01) | DRG 91 ==
LOC: EMEROO 16:46 → 2NENU 16:46 → SUATTDRO 22:31
PROVIDERS: ADMIT Pediatrics; ATTEND Internal Medicine

== ENCOUNTER 2020-08-17 18:26 | Observation (INO) ==
[2020-08-17 19:30] LABS: Basophils % 0.4 %; Eosinophils # 0.1 K/mcL (0.0-0.6); Eosinophils % 1.4 %; Hematocrit 46.3 % (35.3-44.9); Hemoglobin 15.3 g/dL (11.5-15.4); Immature Granulocytes % 0.3 % (0-4); Lymphocytes # 1.6 K/mcL (0.6-4.6); Lymphocytes % 21.5 %; Mean Corpuscular Hemoglobin 31.6 pg (28.0-33.3); Mean Corpuscular Volume 95.7 fL (83.0-100.0); Mean Platelet Volume 9.6 fL (9.4-12.4); Monocytes # 0.5 K/mcL (0.0-1.3); Monocytes % 7.5 %; Platelet Count 280 K/mcL (140-400); Red Blood Count 4.84 M/mcL (3.82-4.97); Segmented Neutrophils % 68.9 %; White Blood Count 7.2 K/mcL (4.3-11.1)
[2020-08-17 19:49] LABS: Alanine Aminotransferase 8 Units/L (7-52); Albumin 4.2 g/dL (3.5-5.7); Albumin/Globulin Ratio 1.4 (1.1-2.2); Alkaline Phosphatase 79 Units/L (34-104); Amylase 24 Units/L (29-103); Aspartate Amino Transferase 12 Units/L (13-39); BUN/Creatinine Ratio 12 (6-26); Bilirubin,Direct 0.1 mg/dL (0.0-0.2); Bilirubin,Indirect 0.3 mg/dL (0.0-1.0); Bilirubin,Total 0.4 mg/dL (0.3-1.0); Blood Urea Nitrogen 12 mg/dL (8-23); Calcium 9.3 mg/dL (8.6-10.3); Carbon Dioxide 28 mEq/L (23-29); Chloride 102 mEq/L (98-107); Globulin 3.1 g/dL (2.4-3.5); Glucose 97 mg/dL (70-105); Lipase 13 Units/L (11-82); Osmolality,Calculated 278 (280-300); Potassium 4.1 mEq/L (3.5-5.1); Sodium 134 mEq/L (136-145); Total Protein 7.3 g/dL (6.4-8.9); eGFR For African Americans > 60 (> 60); eGFR For Non-African Americans 58 (> 60)
[2020-08-17] MEDS ORDERED: Ondansetron 4 MG/2 ML VIAL IVP ONE (20:03)
[2020-08-17] MEDS ORDERED: 0.9 % Sodium Chloride 1,000 ML IVC ONE (20:03)
[2020-08-17] MEDS ORDERED: Isovue-370 500 ML BOTTLE IVP ONE (20:06)
[2020-08-17] MEDS ORDERED: Morphine Sulfate 2 MG/ML SYRINGE IVP ONE (20:06)
[2020-08-17 20:31] LABS: Troponin I < 0.03 ng/mL (< 0.04)
[2020-08-17 20:38] LABS: INR 1.1
[2020-08-17 21:26] LABS: Bacteria,Urine Few per hpf (None-Few); Bilirubin,Urine Negative (Negative); Blood,Urine Negative (Negative); Clarity,Urine Clear (Clear); Color,Urine Colorless (Yellow); Glucose,Urine (UA) Normal (Normal); Ketones,Urine Negative (Negative); Leukocyte Esterase,Urine Moderate (Negative); Nitrite,Urine Negative (Negative); PH,Urine 6.5 pH Units (5.0-8.0); Protein,Urine Negative (Neg-Trace); RBC,Urine 0-3 per hpf (0-3); Specific Gravity,Urine 1.005 (1.010-1.025); Squamous Epithelial Cell,Urine Few per hpf (None-Few); Urobilinogen,Urine Normal (Normal)
[2020-08-17] MEDS ORDERED: methylPREDNISolone 125 MG/2 ML VIAL ONE (21:27)
[2020-08-17] MEDS ORDERED: EPINEPHrine 1 MG/ML VIAL ONE ×2 (21:27→21:39)
[2020-08-17] MEDS ORDERED: 0.9 % Sodium Chloride 1,000 ML ONE ×2 (21:35→21:48)
[2020-08-17] MEDS ORDERED: D5% in Water 250 ML ONE (21:39)
[2020-08-17] MEDS ORDERED: EPINEPHrine 1 MG in D5% in Water 250 ML IVC SCH (21:40)
[2020-08-17] MEDS ORDERED: Ipratropium/Albuterol Neb 3 ML ONE (21:50)
[2020-08-17] MEDS ORDERED: Ipratropium/Albuterol Neb 3 ML IH ONE (21:59)
[2020-08-18] MEDS ORDERED: 0.9 % Sodium Chloride 1,000 ML IVC SCH (00:30)
[2020-08-18] MEDS ORDERED: Acetaminophen 325 MG TABLET PO PRN (00:30)
[2020-08-18] MEDS ORDERED: Naloxone 0.4 MG/ML INJ IVP PRN (00:30)
[2020-08-18] MEDS ORDERED: Ondansetron 4 MG/2 ML VIAL IVP PRN (00:30)
[2020-08-18 09:38] LABS: BUN/Creatinine Ratio 11 (6-26); Blood Urea Nitrogen 11 mg/dL (8-23); Calcium 8.3 mg/dL (8.6-10.3); Carbon Dioxide 22 mEq/L (23-29); Chloride 108 mEq/L (98-107); Glucose 171 mg/dL (70-105); Osmolality,Calculated 287 (280-300); Potassium 4.3 mEq/L (3.5-5.1); Sodium 137 mEq/L (136-145); eGFR For African Americans > 60 (> 60); eGFR For Non-African Americans 57 (> 60)
[2020-08-18 11:32] VITALS: BP 99/49
== END 2020-08-18 17:17 | disposition home or self-care (01) ==
LOC: EMEROOARM 18:26 → CDU 18:26 → SUATTDRO 23:49 → CDU 08-18 00:45
PROVIDERS: ADMIT Student in an Organized Health Care Education/Training Program; ATTEND Pharmacist